=== PATIENT | female | born 1930 | race Caucasian/White ===

== ENCOUNTER 2016-09-06 22:16 | Inpatient (IN) | payer OTHER ==
[~2016-09-06] VITALS: Ht 162.6 cm; Wt 84.1 kg
[~2016-09-06 22:16] MED LIST: ASPEC81 PO; AVP150 PO; CHOL100010 PO; CPR500 PO; METR500T PO; NIFE30TA83 PO; ONDA4TAB7 SL; PRCSR30 PO; SIMV40TA2 PO
[2016-09-06] MEDS ORDERED: SODIUM CHLORIDE 0.9% 1000ML 1,000 ML IV STA (22:19)
--- NOTE | 2016-09-06 22:41 | DIAGNOSTIC IMAGING REPORT ---
HEAD CT NONCONTRAST CT DOSE: 1228.53 mGy.cm HISTORY: EVALUATE ALTERED MENTAL STATUS/WEAKNESS TECHNIQUE: Multiaxial CT images of the head were performed without the use of intravenous contrast. Automated exposure control was utilized for this study. Comparison: None. Findings: Mild motion artifact. The paranasal sinuses and mastoid air cells are clear. The calvarium and skull base are intact. There is no mass, hematoma, midline shift, acute infarct. White matter hypodensity is nonspecific but suggestive of microvascular ischemic change. The ventricles and sulci are within normal limits for age. 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 Right periorbital soft tissue swelling/hematoma. Impression: Mild motion artifact. No definite acute intracranial abnormality. Right periorbital soft tissue swelling/hematoma. Electronically signed by: Colton Mayer M.D. 09/06/2016 10:40 PM Dictated Date/Time: 09/06/2016 10:36 PM
[2016-09-06] MEDS ORDERED: ALBUT/IPRATROP 3MG/0.5MG NEB 3 ML VIAL INH STA (22:42)
--- NOTE | 2016-09-06 22:57 | DIAGNOSTIC IMAGING REPORT ---
CHEST ONE VIEW PORTABLE HISTORY: EVALUATE ALTERED MENTAL STATUS/WEAKNESS COMPARISON: Chest 07/12/2015. FINDINGS: No pneumothorax. No pleural effusions. No focal lung consolidations to suggest pneumonia. No evidence for pulmonary edema. Mild perihilar interstitial thickening. This may be chronic. The heart is normal in size. IMPRESSION: No acute process. Electronically signed by: Colton Mayer M.D. 09/06/2016 10:56 PM Dictated Date/Time: 09/06/2016 10:55 PM
[2016-09-06 22:59] LABS: BASO % 0.3 %; BASO ABS # 0.03 K/uL (0-0.2); COMPLETE YES; EOS % 2.2 %; HEMATOCRIT 44.2 % (37-47); IG% 0.5 %; LYMPH % 31.2 %; LYMPH ABS # 3.48 K/uL (1.2-3.4); MEAN CELL VOLUME 89.7 fL (80-100); MEAN CORPUSCULAR HEMOGLOBIN 30.2 pg (25-34); MEAN CORPUSCULAR HGB CONC 33.7 g/dl (32-36); MEAN PLATELET VOLUME 11.4 fL (7.4-10.4); NEUT % 54.8 %; PLATELET COUNT 211 K/uL (130-400); RED BLOOD COUNT 4.93 M/uL (4.2-5.4); WHITE BLOOD COUNT 11.14 K/uL (4.8-10.8)
[2016-09-06] MEDS ORDERED: ASPCH81X PO (23:02)
[2016-09-06] MEDS ORDERED: POLY335019 PO (23:04)
[2016-09-06] MEDS ORDERED: ATOR-22 PO (23:04)
[2016-09-06] MEDS ORDERED: DOCU-94 PO (23:04)
[2016-09-06] MEDS ORDERED: CALC600T9 PO (23:06)
[2016-09-06] MEDS ORDERED: IRBE-37 PO (23:08)
[2016-09-06] MEDS ORDERED: DONE5TAB14 PO (23:08)
[2016-09-06] MEDS ORDERED: METHYLPREDNISOLONE 125 MG VIAL IV STA (23:09)
[2016-09-06] MEDS ORDERED: ZNTT/150 PO (23:09)
[2016-09-06] MEDS ORDERED: NIFE30TA83 PO (23:09)
[2016-09-06] MEDS ORDERED: SERT25TA PO (23:09)
[2016-09-06 23:10] LABS: PROTHROMBIN TIME (PATIENT) 10.9 SECONDS (9.0-12.0)
[2016-09-06] MEDS ORDERED: ACET-1311 PO (23:11)
[2016-09-06 23:14] LABS: ISTAT IONIZED CALCIUM 1.18 mmol/l (1.12-1.32)
[2016-09-06] MEDS ORDERED: INSU100I2 SQ (23:15)
[2016-09-06 23:17] LABS: ALT/SGPT 21 U/L (12-78); BLOOD UREA NITROGEN 36 mg/dl (7-18); BUN/CREATININE RATIO 32.8 (10-20); CALCIUM 8.8 mg/dl (8.5-10.1); CARBON DIOXIDE 31 mmol/L (21-32); CHLORIDE 103 mmol/L (98-107); GLUCOSE 100 mg/dl (70-99); POTASSIUM 3.4 mmol/L (3.5-5.1); SODIUM 145 mmol/L (136-145)
[2016-09-06 23:26] LABS: ALKALINE PHOSPHATASE 84 U/L (45-117); AST/SGOT 18 U/L (15-37); CKMB/CK RATIO 2.4 (0-3.0); THYROID STIMULATING HORMONE 0.656 uIu/ml (0.300-4.500)
[2016-09-06 23:47] LABS: URINE APPEARANCE CLEAR (CLEAR); URINE BILIRUBIN NEG (NEG); URINE COLOR YELLOW; URINE NITRITE NEG (NEG); URINE SPECIFIC GRAVITY 1.014 (1.000-1.030); UROBILINOGEN NEG (NEG); ZZURINE CULT IF INDIC CATH NO
[2016-09-06 23:48] LABS: MANUAL MICROSCOPIC REQUIRED? NO; REVIEW REQ? NO
[2016-09-07] VITALS (9 sets, daily range): BP systolic 136–185; BP diastolic 47–80; PULSE 66–96; TEMP 36.6–37.1; O2SAT 91–97; Ht 162.6 cm; Wt 84.1 kg
--- NOTE | 2016-09-07 00:20 | EMERGENCY ROOM VISIT NOTE ---
History Report prepared by Chace: Kirill Espinoza Under the Supervision of: Dr. Stan Godinez D.O. First contact with patient: 22:18 Chief Complaint: ALTERED MENTAL STATUS Stated Complaint: FALL. STROKE SX History of Present Illness The patient is a 86 year old female who presents to the Emergency Room by EMS with complaints of an episode of altered mental status. Per EMS, she fell out of bed about 1 hour ago which is when she was last known to be well. She was not talking, not responding, and would stare off into space. She normally walks and talks. Her right arm had limited movement, and her left had more movement. She was able to move her legs bilaterally. She takes Aspirin. Per the patient's daughter, she is normally awake and alert. She note's the patient's mother had a history of stroke. She notes the patient is not normally unbalanced. She has diabetes and is managed only through her diet. Source of History: family, EMS Onset: about 1 hour [employer] Position: other (global) Quality: other (altered mental status) Timing: other (episode) Note: The patient is reported to have limited movement of her right arm. Review of Systems See HPI for pertinent positives & negatives. A total of 10 systems reviewed and were otherwise negative. Past Medical & Surgical Medical Problems: (1) Benign hypertension (2) Diabetes mellitus (3) Dyslipidemia Family History Stroke Social History Smoking Status: Former Smoker Alcohol Use: none Current/Historical Medications Scheduled Aspirin (Aspirin Chewable), 81 MG PO DAILY Atorvastatin (Lipitor), 20 MG PO DAILY Calcium Carbonate-Vitamin D (Calcium + D), 2 TABS PO DAILY Docusate Sodium (Colace), 100 MG PO HS Donepezil Hydrochloride (Aricept), 5 MG PO DAILY Insulin Lispro (Human) (Humalog Kwikpen), SQ ACHS Irbesartan (Avapro), 150 MG PO DAILY Nifedipine Ext Rel (Procardia Xl Ext Rel), 30 MG PO DAILY Polyethylene Glycol 3350 (Miralax), 17 GM PO DAILY Ranitidine (Zantac), 150 MG PO DAILY Sertraline (Zoloft), 25 MG PO DAILY Scheduled PRN Acetaminophen (Tylenol), 650 MG PO Q4 PRN for Mild Pain Acetaminophen (Tylenol), 650 MG PO Q4 PRN for Fever Allergies Coded Allergies: No Known Allergies (Unverified , 1/27/17) Physical Exam Vital Signs Date Time Temp Pulse Resp B/P Pulse Ox O2 Delivery O2 Flow Rate FiO2 09/07/16 00:03 79 26 169/73 95 Room Air 09/06/16 23:08 80 26 177/87 97 Nasal Cannula 3.0 09/06/16 23:00 86 30 175/78 99 Nebulizer 09/06/16 22:57 81 32 173/80 09/06/16 22:41 87 09/06/16 22:38 36.3 89 36 96/76 89 Room Air Physical Exam CONSTITUTIONAL/VITAL SIGNS: Reviewed / noted above. GENERAL: Non-toxic in appearance. INTEGUMENTARY: Warm, dry, and [place]. HEAD: Normocephalic. EYES: without scleral icterus. Ecchymosis and hematoma to the right lateral orbit and temporal area. ENT/OROPHARYNX: clear and moist. LYMPHADENOPATHY/NECK: Is supple without lymphadenopathy or meningismus. RESPIRATORY: Lungs clear and equal. CARDIOVASCULAR: Regular rate and rhythm. GI/ABDOMEN: Soft and nontender. No organomegaly or pulsatile mass. No rebound or guarding. Normal bowel sounds. EXTREMITIES: Warm and well perfused. BACK: No CVA tenderness. NEUROLOGICAL: Nonverbal; right arm paralysis; right leg weakness; right hemineglect. Does not follow commands, therefore exam is limited. PSYCHIATRIC: normal affect. MUSCULOSKELETAL: Normally developed with good muscle tone. Medical Decision & Procedures ER Provider Diagnostic Interpretation: X ray results and stated below per my interpretation and radiologist interpretation. Other radiology results and stated below per my review and radiologist interpretation: HEAD CT NONCONTRAST Findings: Mild motion artifact. The paranasal sinuses and mastoid air cells are clear. The calvarium and skull base are intact. There is no mass, hematoma, midline shift, acute infarct. White matter hypodensity is nonspecific but suggestive of microvascular ischemic change. The ventricles and sulci are within normal limits for age. 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 Right periorbital soft tissue swelling/hematoma. Impression: Mild motion artifact. No definite acute intracranial abnormality. Right periorbital soft tissue swelling/hematoma. Electronically signed by: Colton Mayer M.D. 09/06/2016 10:40 PM Dictated Date/Time: 09/06/2016 10:36 PM CHEST ONE VIEW PORTABLE FINDINGS: No pneumothorax. No pleural effusions. No focal lung consolidations to suggest pneumonia. No evidence for pulmonary edema. Mild perihilar interstitial thickening. This may be chronic. The heart is normal in size. IMPRESSION: No acute process. Electronically signed by: Colton Mayer M.D. 09/06/2016 10:56 PM Dictated Date/Time: 09/06/2016 10:55 PM Laboratory Results 09/06/16 22:00 Red Blood Count 4.93, Mean Corpuscular Volume 89.7, Mean Corpuscular Hemoglobin 30.2, Mean Corpuscular Hemoglobin Concent 33.7, Mean Platelet Volume 11.4, Neutrophils (%) (Auto) 54.8, Lymphocytes (%) (Auto) 31.2, Monocytes (%) (Auto) 11.0, Eosinophils (%) (Auto) 2.2, Basophils (%) (Auto) 0.3, Neutrophils # (Auto ) 6.10, Lymphocytes # (Auto) 3.48, Monocytes # (Auto) 1.23, Eosinophils # (Auto ) 0.24, Basophils # (Auto) 0.03 09/06/16 22:00 Test 09/06/16 22:00 09/06/16 22:58 09/06/16 23:20 09/06/16 23:51 White Blood Count 11.14 K/uL (4.8-10.8) Red Blood Count 4.93 M/uL (4.2-5.4) Hemoglobin 14.9 g/dL (12.0-16.0) Hematocrit 44.2 % (37-47) Mean Corpuscular Volume 89.7 fL (80-100) Mean Corpuscular Hemoglobin 30.2 pg (25-34) Mean Corpuscular Hemoglobin Concent 33.7 g/dl (32-36) Platelet Count 211 K/uL (130-400) Mean Platelet Volume 11.4 fL (7.4-10.4) Neutrophils (%) (Auto) 54.8 % Lymphocytes (%) (Auto) 31.2 % Monocytes (%) (Auto) 11.0 % Eosinophils (%) (Auto) 2.2 % Basophils (%) (Auto) 0.3 % Neutrophils # (Auto) 6.10 K/uL (1.4-6.5) Lymphocytes # (Auto) 3.48 K/uL (1.2-3.4) Monocytes # (Auto) 1.23 K/uL (0.11-0.59) Eosinophils # (Auto) 0.24 K/uL (0-0.5) Basophils # (Auto) 0.03 K/uL (0-0.2) RDW Standard Deviation 45.0 fL (36.4-46.3) RDW Coefficient of Variation 13.7 % (11.5-14.5) Immature Granulocyte % (Auto) 0.5 % Immature Granulocyte # (Auto) 0.06 K/uL (0.00-0.02) Prothrombin Time 10.9 SECONDS (9.0-12.0) Prothromb Time International Ratio 1.0 (0.9-1.1) Activated Partial Thromboplast Time 25.2 SECONDS (21.0-31.0) Partial Thromboplastin Ratio 1.0 Estimated GFR () 52.6 Estimated GFR (Non- 45.4 BUN/Creatinine Ratio 32.8 (10-20) Calcium Level 8.8 mg/dl (8.5-10.1) Magnesium Level 2.0 mg/dl (1.8-2.4) Total Bilirubin 0.5 mg/dl (0.2-1) Direct Bilirubin 0.1 mg/dl (0-0.2) Aspartate Amino Transf (AST/SGOT) 18 U/L (15-37) Alanine Aminotransferase (ALT/SGPT) 21 U/L (12-78) Alkaline Phosphatase 84 U/L (45-117) Total Creatine Kinase 74 U/L (26-192) Creatine Kinase MB 1.8 ng/ml (0.5-3.6) Creatine Kinase MB Ratio 2.4 (0-3.0) Troponin I 0.021 ng/ml (0-0.045) Total Protein 6.8 gm/dl (6.4-8.2) Albumin 3.2 gm/dl (3.4-5.0) Lipase 223 U/L (73-393) Thyroid Stimulating Hormone (TSH) 0.656 uIu/ml (0.300-4.500) Bedside Hemoglobin 15.0 g/dl (12.0-16.0) Bedside Hematocrit 44 % (37-47) Bedside Sodium 143 mEq/L (135-144) Bedside Potassium 3.3 mEq/L (3.3-5.0) Bedside Chloride 100 mEq/L (101-112) Bedside Total CO2 30 mEq/l (24-31) Anion Gap 18.0 mmol/L (16-25) Bedside Blood Urea Nitrogen 35 mg/dl (7-18) Bedside Creatinine 1.0 mg/dl (0.6-1.3) Bedside Glucose (other) 105 mg/dl (70-99) Bedside Ionized Calcium ([place]icia) 1.18 mmol/l (1.12-1.32) Urine Color YELLOW Urine Appearance CLEAR (CLEAR) Urine pH 5.0 (4.5-7.5) Urine Specific [place] 1.014 (1.000-1.030) Urine Protein NEG (NEG) Urine Glucose (UA) NEG (NEG) Urine Ketones NEG (NEG) Urine Occult Blood NEG (NEG) Urine Nitrite NEG (NEG) Urine Bilirubin NEG (NEG) Urine Urobilinogen NEG (NEG) Urine Leukocyte Esterase NEG (NEG) Urine WBC (Auto) 0 /hpf (0-5) Urine RBC (Auto) 0-4 /hpf (0-4) Urine Hyaline Casts (Auto) 1-5 /lpf (0-5) Urine Epithelial Cells (Auto) 10-20 /lpf (0-5) Urine Bacteria (Auto) NEG (NEG) Laboratory results as stated above per my review. Medications Administered Medications (Trade) Dose Ordered Sig/Zach Route Start Time Stop Time Status Last Admin Dose Admin Sodium Chloride (Nss 1000ml) 1,000 ml @ 150 mls/hr Q6H40M STAT IV 09/06/16 22:19 09/07/16 04:58 09/06/16 22:19 150 MLS/HR Albuterol/ Ipratropium (Duoneb) 3 ml NOW STAT INH 09/06/16 22:42 09/06/16 22:43 DC 09/06/16 22:46 3 ML Methylprednisolone Sodium Succinate (Solu-Medrol IV) 125 mg NOW STAT IV 09/06/16 23:09 09/06/16 23:11 DC 09/06/16 23:27 125 MG ECG Indication: altered mental status Rate (beats per minute): 82 Rhythm: sinus rhythm Findings: PAC, no acute ischemic change ED Course 9: Ordered NSS 1,000 ml @ 150 nls/hr IV. 2229: Previous medical records were reviewed. The patient was evaluated in room A1. A complete history and physical examination was performed. 2241: Ordered Duoneb 3 ml INH. 2308: Ordered Solu-Medrol IV 125 mg IV. Medical Decision Differential includes acute cardiac dysrhythmia, microinfarction, CVA, TIA, dehydration, anemia, electrolyte disturbance, seizure, trauma, intracranial bleeding, acute vascular catastrophe, thoracic aortic dissection, PE, abdominal aortic aneurysm rupture, infection, hypoglycemia, overdose, trauma. This is an 86-year-old female who presents to the ED with a chief complaint of a fall and altered mental status. The patient symptoms started around 9 or 9: 30. She apparently fell in the bathroom. She was felt to be a possible stroke victim as per EMS. They found the patient to have right sided weakness. The patient was non-verbal. She would not follow commands. She does have a history of Alzheimer's dementia. She is at a group home. The patient arrived by EMS. They initially took her over to CT scan. The CT scan did not show acute bleed. The patient's exam revealed some moderate to severe right arm paresis and right mild leg paresis. The patient is nonverbal and does not follow commands. She did moan to painful stimuli. Normal plantar reflexes. The patient appeared to have some difficulty breathing and a dry tongue swelling on exam. She has some expiratory wheezing. She was saturating 89% on room air. He is placed on nasal cannula oxygen and given a DuoNeb treatment. Her breathing improved after this. The patient has a large hematoma and ecchymosis on the right lateral orbit and temporal region. The patient has a chest x-ray that did not show acute disease. An EKG shows a sinus rhythm with frequent PACs. Blood work was unremarkable. I discussed the possibilities of thrombolytics with the patient's daughter. With the recent head trauma as well as the patient's age and baseline dementia, we did not feel the patient was a good candidate for thrombolytics. The patient's daughter did not want thrombolytics. The patient will be seen by the hospitalist service for further inpatient care. She was treated with IV fluids. Impression Primary Impression: CVA (cerebral vascular accident) Additional Impression: Traumatic hematoma of head Scribe Attestation The scribe's documentation has been prepared under my direction and personally reviewed by me in its entirety. I confirm that the note above accurately reflects all work, treatment, procedures, and medical decision making performed by me. Departure Information Dispostion Being Evaluated By Hospitalist Referrals MagoffinRamos (PCP) Patient Instructions My [facility] Health Problem Qualifiers
[2016-09-07 01:26] LABS: INFLUENZA A PCR Neg for Influ A (NEG); INFLUENZA B PCR Neg for Influ B (NEG)
[2016-09-07] MEDS ORDERED: VANCOMYCIN INJ 1,000 MG in SODIUM CHLORIDE 0.9% 250ML 250 ML IV STA (02:01)
[2016-09-07] MEDS ORDERED: MoRPHine SULFATE 2 MG/ML CARP IV PRN (02:15)
[2016-09-07] MEDS ORDERED: ONDANSETRON INJ 2 MG/ML 2 ML VIAL IV PRN ×2 (02:15)
[2016-09-07] MEDS ORDERED: PROMETHAZINE HCL INJ 12.5 MG in SODIUM CHLORIDE 0.9% 50ML 50 ML IV PRN (02:15)
[2016-09-07] MEDS ORDERED: DiphenhydrAMINE HCL 50 MG/ML VIAL IV PRN (02:15)
[2016-09-07] MEDS ORDERED: PATIENT'S HEIGHT AND/OR WEIGHT NEEDED SCH (03:00)
[2016-09-07] MEDS ORDERED: LEVALBUTEROL/IPRATROPIUM NEB INH SCH (03:00)
[2016-09-07] MEDS ORDERED: LEVALBUTEROL 1.25MG/0.5ML NEB INH PRN (03:15)
[2016-09-07] MEDS ORDERED: PIPERACILL/TAZOBAC CONSULT ACTIVE PRN (03:15)
[2016-09-07] MEDS ORDERED: IPRATROPIUM BROMIDE NEB SOLN 0.02% 2.5 ML VIAL INH PRN (03:15)
[2016-09-07] MEDS ORDERED: VANCOMYCIN CONSULT ACTIVE PRN (03:15)
[2016-09-07] MEDS ORDERED: PIPERACILL/TAZOBAC IV 3.375 GM in DEXTROSE 5% 100ML IV SCH (03:30)
[2016-09-07] MEDS ORDERED: VANCOMYCIN INJ 2,000 MG in SODIUM CHLORIDE 0.9% 500ML 500 ML IV SCH (04:00)
--- NOTE | 2016-09-07 04:05 | History and Physical ---
History & Physical Date & Time of Service: Sep 07, 2016 at 03:51 Chief Complaint: Hypoxia, Traumatic Hematoma Of Head Primary Care Physician: Travis Villalta History of Present Illness Source: patient, family, clinic records, hospital records The patient is an 86-year-old female resident of [place], he was brought to the emergency department after a fall in the bathroom with head injury, that occurred about one hour prior to arrival. Her daughter is in the emergency department during examination. She reports that her mother typically is interactive, does walk and talk, but does have significant baseline dementia. She was noted to have less right arm movement than usual, but was able to move her legs bilaterally. She takes aspirin daily. The daughter does report her mother had a history of stroke in the past but did not have any residual physical deficit. Past Medical/Surgical History Medical Problems: (1) Benign hypertension Status: Chronic (2) Diabetes mellitus Status: Chronic (3) Dyslipidemia Status: Chronic Family History Stroke Social History Smoking Status: Former Smoker Smokeless Tobacco Use: No Alcohol Use: none Drug Use: none [facility] Occupational Status: retired Immunizations History of Influenza Vaccine: Yes History of Tetanus Vaccine?: Yes History of Pneumococcal: Yes History of Hepatitis B Vaccine: Unknown Multi-Drug Resistant Organisms History of MDRO: No Allergies Coded Allergies: No Known Allergies (Unverified , 09/06/16) Home Medications Scheduled Aspirin (Aspirin Chewable), 81 MG PO DAILY Atorvastatin (Lipitor), 20 MG PO DAILY Calcium Carbonate-Vitamin D (Calcium + D), 2 TABS PO DAILY Docusate Sodium (Colace), 100 MG PO HS Donepezil Hydrochloride (Aricept), 5 MG PO DAILY Insulin Lispro (Human) (Humalog Kwikpen), SQ ACHS Irbesartan (Avapro), 150 MG PO DAILY Nifedipine Ext Rel (Procardia Xl Ext Rel), 30 MG PO DAILY Polyethylene Glycol 3350 (Miralax), 17 GM PO DAILY Ranitidine (Zantac), 150 MG PO DAILY Sertraline (Zoloft), 25 MG PO DAILY Scheduled PRN Acetaminophen (Tylenol), 650 MG PO Q4 PRN for Mild Pain Acetaminophen (Tylenol), 650 MG PO Q4 PRN for Fever Review of Systems The patient is unable to contribute to her review of systems due to altered mental state, and this baseline information is provided by her daughter as noted above. Physical Exam Vital Signs Date Time Temp Pulse Resp B/P Pulse Ox O2 Delivery O2 Flow Rate FiO2 09/07/16 03:07 36.9 96 32 185/47 91 Nasal Cannula 09/07/16 02:25 86 16 144/70 91 09/07/16 02:16 84 09/07/16 00:50 76 25 139/96 94 Nasal Cannula 3.0 09/07/16 00:03 79 26 169/73 95 Room Air 09/06/16 23:08 80 26 177/87 97 Nasal Cannula 3.0 09/06/16 23:00 86 30 175/78 99 Nebulizer 09/06/16 22:57 81 32 173/80 09/06/16 22:41 87 09/06/16 22:38 36.3 89 36 96/76 89 Room Air The patient is lethargic, occasionally opens eyes, does not interact purposefully, has a hematoma over right supraorbital frontal area, has an occasional harsh cough, and is otherwise in no acute distress. HEENT--PERRL, EOMI, mucous membranes and oropharynx dry. Hematoma as noted above. Neck--supple, no JVD or bruits, thyroid normal, trachea midline, no adenopathy. Heart--normal S1 and S2, no extra beats, no murmurs, rubs or gallops. Lungs--wheezes bilaterally, with scattered rhonchi, no respiratory distress, no accessory muscle use. Abdomen--normal bowel sounds and soft, nontender and nondistended, no hernias or masses, no organomegaly. Extremities--no cyanosis, clubbing or edema. There are good distal pulses b/l. Dermatologic--normal skin turgor, normal color, warm and dry, no abnormal lymph nodes, no rash. Neurologic--cranial nerves II through XII grossly intact. Rheumatologic--deferred Psychiatric--lethargic Diagnostics Laboratory Results Results Past 24 Hours Test 09/06/16 22:00 09/06/16 22:58 09/06/16 23:20 09/06/16 23:51 Range/Units White Blood Count 11.14 4.8-10.8 K/uL Red Blood Count 4.93 4.2-5.4 M/uL Hemoglobin 14.9 12.0-16.0 g/dL Hematocrit 44.2 37-47 % Mean Corpuscular Volume 89.7 80-100 fL Mean Corpuscular Hemoglobin 30.2 25-34 pg Mean Corpuscular Hemoglobin Concent 33.7 32-36 g/dl Platelet Count 211 130-400 K/uL Mean Platelet Volume 11.4 7.4-10.4 fL Neutrophils (%) (Auto) 54.8 % Lymphocytes (%) (Auto) 31.2 % Monocytes (%) (Auto) 11.0 % Eosinophils (%) (Auto) 2.2 % Basophils (%) (Auto) 0.3 % Neutrophils # (Auto) 6.10 1.4-6.5 K/uL Lymphocytes # (Auto) 3.48 1.2-3.4 K/uL Monocytes # (Auto) 1.23 0.11-0.59 K/uL Eosinophils # (Auto) 0.24 0-0.5 K/uL Basophils # (Auto) 0.03 0-0.2 K/uL RDW Standard Deviation 45.0 36.4-46.3 fL RDW Coefficient of Variation 13.7 11.5-14.5 % Immature Granulocyte % (Auto) 0.5 % Immature Granulocyte # (Auto) 0.06 0.00-0.02 K/uL Prothrombin Time 10.9 9.0-12.0 SECONDS Prothromb Time International Ratio 1.0 0.9-1.1 Activated Partial Thromboplast Time 25.2 21.0-31.0 SECONDS Partial Thromboplastin Ratio 1.0 Sodium Level 145 136-145 mmol/L Potassium Level 3.4 3.5-5.1 mmol/L Chloride Level 103 98-107 mmol/L Carbon Dioxide Level 31 21-32 mmol/L Anion Gap 11.0 18.0 16-25 mmol/L Blood Urea Nitrogen 36 7-18 mg/dl Creatinine 1.10 0.60-1.20 mg/dl Estimated GFR () 52.6 Estimated GFR (Non- 45.4 BUN/Creatinine Ratio 32.8 10-20 Random Glucose 100 70-99 mg/dl Calcium Level 8.8 8.5-10.1 mg/dl Magnesium Level 2.0 1.8-2.4 mg/dl Total Bilirubin 0.5 0.2-1 mg/dl Direct Bilirubin 0.1 0-0.2 mg/dl Aspartate Amino Transf (AST/SGOT) 18 15-37 U/L Alanine Aminotransferase (ALT/SGPT) 21 12-78 U/L Alkaline Phosphatase 84 45-117 U/L Total Creatine Kinase 74 26-192 U/L Creatine Kinase MB 1.8 0.5-3.6 ng/ml Creatine Kinase MB Ratio 2.4 0-3.0 Troponin I 0.021 0-0.045 ng/ml Total Protein 6.8 6.4-8.2 gm/dl Albumin 3.2 3.4-5.0 gm/dl Lipase 223 73-393 U/L Thyroid Stimulating Hormone (TSH) 0.656 0.300-4.500 uIu/ml Bedside Hemoglobin 15.0 12.0-16.0 g/dl Bedside Hematocrit 44 37-47 % Bedside Sodium 143 135-144 mEq/L Bedside Potassium 3.3 3.3-5.0 mEq/L Bedside Chloride 100 101-112 mEq/L Bedside Total CO2 30 24-31 mEq/l Bedside Blood Urea Nitrogen 35 7-18 mg/dl Bedside Creatinine 1.0 0.6-1.3 mg/dl Bedside Glucose (other) 105 70-99 mg/dl Bedside Ionized Calcium (Leticia) 1.18 1.12-1.32 mmol/l Urine Color YELLOW Urine Appearance CLEAR CLEAR Urine pH 5.0 4.5-7.5 Urine Specific [place] 1.014 1.000-1.030 Urine Protein NEG NEG Urine Glucose (UA) NEG NEG Urine Ketones NEG NEG Urine Occult Blood NEG NEG Urine Nitrite NEG NEG Urine Bilirubin NEG NEG Urine Urobilinogen NEG NEG Urine Leukocyte Esterase NEG NEG Urine WBC (Auto) 0 0-5 /hpf Urine RBC (Auto) 0-4 0-4 /hpf Urine Hyaline Casts (Auto) 1-5 0-5 /lpf Urine Epithelial Cells (Auto) 10-20 0-5 /lpf Urine Bacteria (Auto) NEG NEG Influenza Type A (RT-PCR) Neg for Influ A NEG Influenza Type B (RT-PCR) Neg for Influ B NEG Diagnostic Radiology Patient Name: SAULO PETERSON Unit Number: [id number] Dictated: 09/06/162235 Transcribed: 09/06/162235 [facility] Printed Date/Time: [~ rep prt dt]/[~ rep prt tm] [~ rep ct labl] - [~ rep ct ivnm] [place] [address] Dictated: 09/06/162235 Transcribed: 09/06/162235 [facility] Printed Date/Time: [~ rep prt dt]/[~ rep prt tm] [~ rep ct labl] - [~ rep ct ivnm] HEAD CT NONCONTRAST CT DOSE: 1228.53 mGy.cm HISTORY: EVALUATE ALTERED MENTAL STATUS/WEAKNESS TECHNIQUE: Multiaxial CT images of the head were performed without the use of intravenous contrast. Automated exposure control was utilized for this study. Comparison: None. Findings: Mild motion artifact. The paranasal sinuses and mastoid air cells are clear. The calvarium and skull base are intact. There is no mass, hematoma, midline shift, acute infarct. White matter hypodensity is nonspecific but suggestive of microvascular ischemic change. The ventricles and sulci are within normal limits for age. 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 Right periorbital soft tissue swelling/hematoma. Impression: Mild motion artifact. No definite acute intracranial abnormality. Right periorbital soft tissue swelling/hematoma. Electronically signed by: Colton Mayer M.D. 09/06/2016 10:40 PM Dictated Date/Time: 09/06/2016 10:36 PM The status of this report is Signed. Draft = Not yet reviewed or approved by Radiologist. Signed = Reviewed and approved by Radiologist. <AttendingPhy></AttendingPhy> <FamilyPhy>[facility]</FamilyPhy> <PrimaryPhy> [facility]</PrimaryPhy> <UnitNumber>[id number]</UnitNumber> <VisitNumber> [id number]</VisitNumber> <PatientName>SAULO PETERSON</PatientName> < DateOfBirth>1930</DateOfBirth> <Location>[facility]</Location> <ServiceDate></ServiceDate> <MNE>ESINDI</MNE> <OrderingPhy>Stan Godinez D.O.</ OrderingPhy> <OrderingPhyMNE>f rep ord dr pan</OrderingPhyMNE> <DictatingPhyMNE> f rep dict dr pan</DictatingPhyMNE> <CCListMNE>f rep ct mne</CCListMNE> < AdmittingPhyMNE>f pt admit dr pan</AdmittingPhyMNE> <AttendingPhyMNE>f pt attend dr pan</AttendingPhyMNE> <ConsultingPhyMNE>f pt consult dr pan</ConsultingPhyMNE> <FamilyPhyMNE>f pt fam dr pan</FamilyPhyMNE> <OtherPhyMNE>f pt other dr pan</OtherPhyMNE> < PrimaryPhyMNE>f pt prim care dr pan</PrimaryPhyMNE> <ReferringPhyMNE>f pt referring dr pan</ReferringPhyMNE> Patient Name: SAULO PETERSON Unit Number: [id number] Dictated: 09/06/162254 Transcribed: 09/06/162254 [employer] Printed Date/Time: [~ rep prt dt]/[~ rep prt tm] [~ rep ct labl] - [~ rep ct ivnm] Radiology Department [place], [place] [id number] Dictated: 09/06/162254 Transcribed: 09/06/162254 [employer] Printed Date/Time: [~ rep prt dt]/[~ rep prt tm] [~ rep ct labl] - [~ rep ct ivnm] HISTORY: EVALUATE ALTERED MENTAL STATUS/WEAKNESS COMPARISON: Chest 07/12/2015. FINDINGS: No pneumothorax. No pleural effusions. No focal lung consolidations to suggest pneumonia. No evidence for pulmonary edema. Mild perihilar interstitial thickening. This may be chronic. The heart is normal in size. IMPRESSION: No acute process. Electronically signed by: Colton Mayer M.D. 09/06/2016 10:56 PM Dictated Date/Time: 09/06/2016 10:55 PM The status of this report is Signed. Draft = Not yet reviewed or approved by Radiologist. Signed = Reviewed and approved by Radiologist. <AttendingPhy></AttendingPhy> <FamilyPhy>[facility]</FamilyPhy> <PrimaryPhy> [facility]</PrimaryPhy> <UnitNumber>[id number]</UnitNumber> <VisitNumber> [id number]</VisitNumber> <PatientName>SAULO PETERSON</PatientName> < DateOfBirth>1930</DateOfBirth> <Location>[facility]</Location> <ServiceDate></ServiceDate> <MNE>ESINDI</MNE> <OrderingPhy>Stan Godinez D.O.</ OrderingPhy> <OrderingPhyMNE>f rep ord dr pan</OrderingPhyMNE> <DictatingPhyMNE> f rep dict dr pan</DictatingPhyMNE> <CCListMNE>f rep ct viviane</CCListMNE> < AdmittingPhyMNE>f pt admit dr pan</AdmittingPhyMNE> <AttendingPhyMNE>f pt attend dr pan</AttendingPhyMNE> <ConsultingPhyMNE>f pt consult dr pan</ConsultingPhyMNE> <FamilyPhyMNE>f pt fam dr pan</FamilyPhyMNE> <OtherPhyMNE>f pt other dr pan</OtherPhyMNE> < PrimaryPhyMNE>f pt prim care dr pan</PrimaryPhyMNE> <ReferringPhyMNE>f pt referring dr pan</ReferringPhyMNE> EKG EKG shows sinus arrhythmia at 82, with no acute ST-T changes. Impression Assessment and Plan Altered mental status, with baseline significant dementia, status post fall with head trauma--the patient be admitted to the telemetry unit for cardiac rhythm monitoring. CT of the head does not show any acute issue at this time, and since she is beginning to arouse, will not be able to do repeat imaging tonight, as I do not want her sedated. She'll be admitted and made nothing by mouth, placed on normal saline with potassium chloride 20 mEq 100 ML's per hour. We'll follow serial laboratories. Pulmonary--possible aspiration pneumonia after fall versus pneumonia precipitating fall. Place on Solu-Medrol 40 mg IV every 8 hours, vancomycin IV per renal dosing, Zosyn 3.375 mg IV every 8 hours, and Xopenex with Atrovent nebulizers every 6 hours while awake and every 2 hours when necessary. Hypercholesterolemia-- hold atorvastatin 20 mg by mouth daily while nothing by mouth. Dementia-- hold donepezil 5 mg by mouth daily. Hypertension/hypokalemia-- hold chewable aspirin 81 mg by mouth daily, irbesartan 150 mg by mouth daily, nifedipine extended release 30 mg by mouth daily. Place on hydralazine 10 mg IV every 6 hours when necessary systolic blood pressure greater than 150. Diabetes mellitus--hold standard Humalog dosing, and place on Accu-Cheks before meals and at bedtime with NovoLog coverage. GERD--hold ranitidine 150 mg by mouth daily, and place on famotidine 20 mg IV twice a day. Depression--hold sertraline 25 mg by mouth daily. Level of Care Telemetry Advanced Directives Existing Advance Directive: Yes Existing Living Will: Yes Existing Power of Broadcast Correspondent: Yes Resuscitation Status DO NOT RESUSCITATE VTE Prophylaxis VTE Risk Assessment Done? Y/N: Yes Risk Level: Moderate Given or contraindicated: SCD's Social Service Consult [place]
[2016-09-07] MEDS ORDERED: INFLUENZA VIRUS QUAD VACCINE 0.5 ML SYR IM. ONE (04:30)
[2016-09-07] MEDS ORDERED: INFLUENZA ADMINISTRATION CHARGE ONE (04:30)
[2016-09-07] MEDS: LORAZEPAM 2 MG/ML 1 ML VIAL IV PRN (05:15)
[2016-09-07] MEDS: FAMOTIDINE IV INJ 20 MG in DEXTROSE 5% 100ML 100 ML IV SCH ×2 (05:44→16:30)
[2016-09-07] MEDS ORDERED: PIPERACILL/TAZOBAC IV 3.375 GM in DEXTROSE 5% 100ML 100 ML IV SCH (06:00)
[2016-09-07] MEDS: LEVALBUTEROL 1.25MG/0.5ML NEB INH SCH ×3 (07:06→19:33)
[2016-09-07] MEDS: IPRATROPIUM BROMIDE NEB SOLN 0.02% 2.5 ML VIAL INH SCH ×3 (07:06→19:33)
[2016-09-07] MEDS: NSS + 20MEQ KCL 1000ML 1,000 ML IV SCH ×2 (08:19→13:28)
[2016-09-07] MEDS: METHYLPREDNISOLONE IV 40 MG in SYRINGE 0 ML IV SCH ×2 (08:23→16:30)
[2016-09-07] MEDS: PIPERACILL/TAZOBAC IV 3.375 GM in DEXTROSE 5% 100ML IV SCH ×2 (08:23→16:30)
[2016-09-07] MEDS ORDERED: FAMOTIDINE 20MG/102 ML D5W IV SCH (09:00)
--- NOTE | 2016-09-07 09:16 | Neurology Consultation ---
Neurology Consultation Date of Consultation: Sep 07, 2016. Attending Physician: Rosendo Owusu D.O. Primary Care Physician: [place] Annette Reason for Consultation: Patient is an 86-year-old, was asked to see the request of Dr. Cronin, for neurologic consultation regarding severe right-sided weakness and aphasia, probable stroke History of Present Illness Source: caregiver, clinic records, hospital records The patient is obtunded and aphasic and gives no history. 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 She is on Aricept 5 mg a day. He last saw her in February 2015. In April 2014 she had her most recent MRI of the brain which showed a moderate old small vessel ischemic disease diffusely as well as other aging changes. She has a history of carotid stenosis and the most recent carotid ultrasound in April 2014 showed a 50-69 % stenosis in the left internal carotid artery with the right being unremarkable. She is on 81 mg aspirin tablet daily. She has a history of diabetes, hypertension, and dyslipidemia. She also has a history of obstructive sleep apnea. She is at [facility] and apparently fell one hour prior to admission striking her right forehead/orbit. She was found staring without speech or response and not moving her right upper extremity. She arrived at the emergency room on September 06 at 2-3 hours with a temperature 36.8, pulse 89 and regular, respiratory rate 36, blood pressure 96/76 and O2 saturation 89%. On exam she was nonverbal and was paralyzed in the right upper extremity. The right lower extremity was weak and she seemed to be neglecting the right side. NIH stroke scale was determined to be [address] scan of the head showed no acute changes. Chest x-ray was unremarkable as well. CBC and chem profile were largely unremarkable. Decision was made to not give TPA on the basis of her head trauma and dementia as well as the daughter refusing the medication After admission, around 0300 hours today, and age stroke scale by the nursing staff was 29. There has been no seizure activity noted by the nursing staff. Past Medical/Surgical History Medical Problems: (1) CVA (cerebral vascular accident) Status: Acute (2) Traumatic hematoma of head Status: Acute Hypertension Diabetes Dyslipidemia Chronic cerebral ischemia Obstructive sleep apnea Depression Post cataract surgery bilaterally, tonsillectomy, and dental surgery Family History Apparently there is a history of stroke and sleep apnea and the patient's mother. I'm no details regarding the patient's father. Social History The patient apparently quit cigarette smoking in the past but I have no further details. She does not use alcohol. She is described as being retired from his job which I have no further details Smoking Status: Former smoker Smokeless Tobacco Use: No Alcohol Use: none Drug Use: none Marital Status: single Housing Status: long-term Occupation Status: retired Allergies Coded Allergies: No Known Allergies (Unverified , 09/06/16) Current Inpatient Medications Current Inpatient Medications Medications (Trade) Dose Ordered Sig/Zach Route Start Time Stop Time Status Last Admin Dose Admin Potassium Chloride/Sodium Chloride 1,000 ml @ 100 mls/hr Q10H IV 09/07/16 03:00 10/07/16 02:59 09/07/16 08:19 100 MLS/HR Methylprednisolone Sodium Succinate/ Syringe (Solu-Medrol IV/ Syringe) 0.64 ml @ 1.5 mls/min Q8H IV 09/07/16 08:00 10/07/16 07:59 09/07/16 08:23 1.5 MLS/MIN Ondansetron HCl (Zofran Inj) 4 mg Q6H PRN IV 09/07/16 02:15 10/07/16 02:14 Lorazepam (Ativan Inj) 0.5 mg Q4H PRN IV 09/07/16 02:15 10/07/16 02:14 09/07/16 05:15 0.5 MG Diphenhydramine HCl 25 mg 25 mg Q4H PRN IV 09/07/16 02:15 10/07/16 02:14 Promethazine HCl/ Sodium Chloride (Phenergan Inj/ Nss 50ml) 50.5 ml @ 202 mls/hr Q4H PRN IV 09/07/16 02:15 10/07/16 02:14 Morphine Sulfate (MoRPHine SULFATE INJ) 2 mg Q2H PRN IV 09/07/16 02:15 09/21/16 02:14 Ipratropium [place] (Atrovent 0.02% 0.5MG/2.5ML Neb) 0.5 mg Q6R INH 09/07/16 09:00 10/07/16 08:59 09/07/16 07:06 0.5 MG Levalbuterol (Xopenex 1.25MG/ 0.5ML Neb) 1.25 mg Q6R INH 09/07/16 09:00 10/07/16 08:59 09/07/16 07:06 1.25 MG Ipratropium [place] (Atrovent 0.02% 0.5MG/2.5ML Neb) 0.5 mg Q2H PRN INH 09/07/16 03:15 10/07/16 03:14 Levalbuterol (Xopenex 1.25MG/ 0.5ML Neb) 1.25 mg Q2H PRN INH 09/07/16 03:15 10/07/16 03:14 Piperacillin Sod/ Tazobactam Sod (Consult) 1 ea UD PRN N/A 09/07/16 03:15 10/07/16 03:14 Vancomycin HCl 1 ea 1 ea UD PRN N/A 09/07/16 03:15 10/07/16 03:14 Piperacillin Sod/ Tazobactam Sod 3.375 gm/Dextrose 115 ml @ 28.75 mls/ hr Q8H IV 09/07/16 08:00 09/14/16 07:59 09/07/16 08:23 28.75 MLS/HR Famotidine/ Dextrose (Pepcid IV Inj/ D5 100ml) 102 ml @ 204 mls/hr Q12H IV 09/07/16 04:30 10/07/16 04:29 09/07/16 05:44 204 MLS/HR Review of Systems The patient cannot give a review of systems since she is nonverbal and will not follow commands Physical Exam Vital Signs (Past 24 Hrs): Date Time Temp Pulse Resp B/P Pulse Ox O2 Delivery O2 Flow Rate FiO2 09/07/16 07:06 73 16 94 Nasal Cannula 3.0 09/07/16 06:57 37.1 82 24 161/76 94 Nasal Cannula 2.5 Humidified Oxygen 09/07/16 05:50 155/62 09/07/16 04:00 Nasal Cannula 3.0 09/07/16 03:07 36.9 96 32 185/47 91 Nasal Cannula 09/07/16 02:25 86 16 144/70 91 09/07/16 02:16 84 09/07/16 00:50 76 25 139/96 94 Nasal Cannula 3.0 09/07/16 00:03 79 26 169/73 95 Room Air 09/06/16 23:08 80 26 177/87 97 Nasal Cannula 3.0 09/06/16 23:00 86 30 175/78 99 Nebulizer 09/06/16 22:57 81 32 173/80 09/06/16 22:41 87 09/06/16 22:38 36.3 89 36 96/76 89 Room Air Patient is right-handed. There is bruising and swelling around the right orbit and temporal head region. She is lying in bed with her eyes closed and head turn to the left. With clap or loud voice, she opens her eyes, lifts her head off the pillow, fixates on me for a second or 2, and then puts her head back and closes her eyes. I watched her over several minutes and she has a very deep/labored tachypnea which is consistent. She will not speak and she will not follow any simple one-step commands even when fixated on me. Pupils seem 3-4 mm bilaterally and reactive to light. I cannot get her to track past midline to the right. Does not see any specific facial droop and her tongue is midline. She gags. Neck is supple. There are no bruits. Heart without murmur. She will spontaneously move her left arm frequently picking and pulling at her clothing. She will wiggle her left toes spontaneously some, and to a very minor degree, her right toes. Her left arm is flaccid. She has decreased tone in both legs but there is good tone in the left arm. Reflexes are 1/4 in the biceps, triceps, brachioradialis, and quadriceps tendons bilaterally. Achilles tendon reflexes seem absent bilaterally. Toes are downgoing with plantar stimulation on the left and upgoing with plantar stimulation on the right. Patient grimaces, lifts her head up and opens her eyes, and makes groaning noises, and withdraws the limbs, with deep pain in 4 limbs. She reacts less quickly in the right leg than she does the left arm and leg which are quite rapidly withdrawn. She will draw a little bit with the right upper extremity to deep pain. Laboratory Results Past 24 Hours: 09/06/16 22:00 Red Blood Count 4.93, Mean Corpuscular Volume 89.7, Mean Corpuscular Hemoglobin 30.2, Mean Corpuscular Hemoglobin Concent 33.7, Mean Platelet Volume 11.4, Neutrophils (%) (Auto) 54.8, Lymphocytes (%) (Auto) 31.2, Monocytes (%) (Auto) 11.0, Eosinophils (%) (Auto) 2.2, Basophils (%) (Auto) 0.3, Neutrophils # (Auto ) 6.10, Lymphocytes # (Auto) 3.48, Monocytes # (Auto) 1.23, Eosinophils # (Auto ) 0.24, Basophils # (Auto) 0.03 09/06/16 22:00 Test 09/06/16 22:00 09/06/16 22:58 09/06/16 23:20 09/06/16 23:51 White Blood Count 11.14 K/uL (4.8-10.8) Red Blood Count 4.93 M/uL (4.2-5.4) Hemoglobin 14.9 g/dL (12.0-16.0) Hematocrit 44.2 % (37-47) Mean Corpuscular Volume 89.7 fL (80-100) Mean Corpuscular Hemoglobin 30.2 pg (25-34) Mean Corpuscular Hemoglobin Concent 33.7 g/dl (32-36) Platelet Count 211 K/uL (130-400) Mean Platelet Volume 11.4 fL (7.4-10.4) Neutrophils (%) (Auto) 54.8 % Lymphocytes (%) (Auto) 31.2 % Monocytes (%) (Auto) 11.0 % Eosinophils (%) (Auto) 2.2 % Basophils (%) (Auto) 0.3 % Neutrophils # (Auto) 6.10 K/uL (1.4-6.5) Lymphocytes # (Auto) 3.48 K/uL (1.2-3.4) Monocytes # (Auto) 1.23 K/uL (0.11-0.59) Eosinophils # (Auto) 0.24 K/uL (0-0.5) Basophils # (Auto) 0.03 K/uL (0-0.2) RDW Standard Deviation 45.0 fL (36.4-46.3) RDW Coefficient of Variation 13.7 % (11.5-14.5) Immature Granulocyte % (Auto) 0.5 % Immature Granulocyte # (Auto) 0.06 K/uL (0.00-0.02) Prothrombin Time 10.9 SECONDS (9.0-12.0) Prothromb Time International Ratio 1.0 (0.9-1.1) Activated Partial Thromboplast Time 25.2 SECONDS (21.0-31.0) Partial Thromboplastin Ratio 1.0 Estimated GFR () 52.6 Estimated GFR (Non- 45.4 BUN/Creatinine Ratio 32.8 (10-20) Calcium Level 8.8 mg/dl (8.5-10.1) Magnesium Level 2.0 mg/dl (1.8-2.4) Total Bilirubin 0.5 mg/dl (0.2-1) Direct Bilirubin 0.1 mg/dl (0-0.2) Aspartate Amino Transf (AST/SGOT) 18 U/L (15-37) Alanine Aminotransferase (ALT/SGPT) 21 U/L (12-78) Alkaline Phosphatase 84 U/L (45-117) Total Creatine Kinase 74 U/L (26-192) Creatine Kinase MB 1.8 ng/ml (0.5-3.6) Creatine Kinase MB Ratio 2.4 (0-3.0) Troponin I 0.021 ng/ml (0-0.045) Total Protein 6.8 gm/dl (6.4-8.2) Albumin 3.2 gm/dl (3.4-5.0) Lipase 223 U/L (73-393) Thyroid Stimulating Hormone (TSH) 0.656 uIu/ml (0.300-4.500) Bedside Hemoglobin 15.0 g/dl (12.0-16.0) Bedside Hematocrit 44 % (37-47) Bedside Sodium 143 mEq/L (135-144) Bedside Potassium 3.3 mEq/L (3.3-5.0) Bedside Chloride 100 mEq/L (101-112) Bedside Total CO2 30 mEq/l (24-31) Anion Gap 18.0 mmol/L (16-25) Bedside Blood Urea Nitrogen 35 mg/dl (7-18) Bedside Creatinine 1.0 mg/dl (0.6-1.3) Bedside Glucose (other) 105 mg/dl (70-99) Bedside Ionized Calcium ([place]) 1.18 mmol/l (1.12-1.32) Urine Color YELLOW Urine Appearance CLEAR (CLEAR) Urine pH 5.0 (4.5-7.5) Urine Specific [place] 1.014 (1.000-1.030) Urine Protein NEG (NEG) Urine Glucose (UA) NEG (NEG) Urine Ketones NEG (NEG) Urine Occult Blood NEG (NEG) Urine Nitrite NEG (NEG) Urine Bilirubin NEG (NEG) Urine Urobilinogen NEG (NEG) Urine Leukocyte Esterase NEG (NEG) Urine WBC (Auto) 0 /hpf (0-5) Urine RBC (Auto) 0-4 /hpf (0-4) Urine Hyaline Casts (Auto) 1-5 /lpf (0-5) Urine Epithelial Cells (Auto) 10-20 /lpf (0-5) Urine Bacteria (Auto) NEG (NEG) Influenza Type A (RT-PCR) Neg for Influ A (NEG) Influenza Type B (RT-PCR) Neg for Influ B (NEG) Imaging CHEST ONE VIEW PORTABLE HISTORY: EVALUATE ALTERED MENTAL STATUS/WEAKNESS COMPARISON: Chest 07/12/2015. FINDINGS: No pneumothorax. No pleural effusions. No focal lung consolidations to suggest pneumonia. No evidence for pulmonary edema. Mild perihilar interstitial thickening. This may be chronic. The heart is normal in size. IMPRESSION: No acute process. Electronically signed by: Colton Mayer M.D. 09/06/2016 10:56 PM Dictated Date/Time: 09/06/2016 10:55 PM Impression 1. Fall with closed head trauma bruising and contusion right orbital temporal region last evening. 2. Right arm plegia with right leg weakness, global aphasia, and probable right homonymous hemianopsia. There may be some neglect of the right side as well but this is more difficult to be certain. This is most likely consistent with a large left middle cerebral artery distribution CVA. There was no evidence of hemorrhage by CT scan. NIH stroke scale is 22 this morning The patient has a very poor prognosis, overall, given her advanced age and the extent and severity of the stroke. This event occurred on aspirin. 3. Multiple risk factors for stroke including hypertension, diabetes, dyslipidemia. Obstructive sleep apnea is a risk factor for stroke as well particularly of untreated. 4. Dementia. This is likely mixed aging and vascular. She is on donepezil 5 mg daily. 5. Depression on low-dose sertraline 25 mg daily. 6. History of left internal carotid artery stenosis, 50-69% stenosis Plan 1. MRI of the brain would be useful to obtain evaluate extent and severity of stroke. Would also help us with prognosis. 2. Consider carotid ultrasound and echocardiogram 3. Continue on aspirin for now but may consider switch to alternative medication such as Plavix I spoke with Dr. Owusu regarding his case including differential diagnosis and treatment options. Overall, I will reiterate that this is a very poor prognosis I spent a total of 60 minutes with this patient in direct patient care.
--- NOTE | 2016-09-07 15:24 | DIAGNOSTIC IMAGING REPORT ---
MRI OF THE BRAIN WITHOUT AND WITH IV CONTRAST CLINICAL HISTORY: Right-sided weakness. Possible stroke. COMPARISON STUDY: Head CT dated 09/06/2016, MRI the brain dated 05/02/2014. TECHNIQUE: MRI of the brain was performed from the vertex to the skull base utilizing various T1 and T2 weighted sequences. Following the IV administration of 8 mL of Gadavist contrast, additional enhanced images were obtained. FINDINGS: The study is compromised by patient motion artifact. Sagittal T1, axial diffusion, proton density and T2 weighted axial, coronal FLAIR, and pre and post axial T1-weighted images were acquired. These were supplemented with post gadolinium coronal T1 weighted images. No intra or extra-axial mass lesions are visualized. There are foci of restricted water diffusion involving the left posterior frontal, parietal lobe, insular cortex. The findings are indicative of acute/subacute infarct. There is no evidence of ventricular dilatation. Proton density T2-weighted and FLAIR images reveal scattered foci of increased T2 signal within the white matter, likely on a small vessel basis. There are bilateral basal ganglia lacunar infarcts. There are no abnormal flow voids. There is no evidence of pathologic enhancement. IMPRESSION: Moderate sized left MCA distribution acute/subacute infarct involving the left parietal lobe, posterior frontal lobe, and insular cortex. Electronically signed by: Mehdi King M.D. 09/07/2016 3:22 PM Dictated Date/Time: 09/07/2016 3:15 PM
--- NOTE | 2016-09-07 15:33 | DIAGNOSTIC IMAGING REPORT ---
ULTRASOUND OF THE CAROTID ARTERIES CLINICAL HISTORY: Stroke. Right-sided weakness COMPARISON STUDY: April 2014 TECHNIQUE: Real-time, grayscale, and color Doppler sonography of the carotid arteries was performed. Imaging reviewed in the transverse and longitudinal planes. NASCET criteria was utilized for stenosis calcification. FINDINGS: There is moderate atherosclerotic plaque present bilaterally. The peak systolic velocity within the right internal carotid artery is 84 cm/sec. The systolic velocity ratio of right internal to common carotid artery is 1.1. The peak systolic velocity within the left internal carotid artery is 138 cm/sec. The systolic velocity ratio left internal to common carotid artery is 2.1. Antegrade flow is seen in the vertebral arteries. The external carotid arteries are patent. IMPRESSION: 1. 50-69% stenosis of the left internal carotid artery. This remain similar to the preceding study. 2. No evidence of hemodynamically significant right internal carotid artery stenosis. Electronically signed by: Mehdi King M.D. 09/07/2016 3:32 PM Dictated Date/Time: 09/07/2016 3:29 PM
[2016-09-08] VITALS (10 sets, daily range): BP systolic 127–162; BP diastolic 54–84; PULSE 65–79; TEMP 36.3–36.8; O2SAT 91–97
[2016-09-08] MEDS: METHYLPREDNISOLONE IV 40 MG in SYRINGE 0 ML IV SCH ×3 (00:12→15:59)
[2016-09-08] MEDS: PIPERACILL/TAZOBAC IV 3.375 GM in DEXTROSE 5% 100ML IV SCH ×3 (00:12→15:59)
[2016-09-08] MEDS: IPRATROPIUM BROMIDE NEB SOLN 0.02% 2.5 ML VIAL INH SCH ×4 (02:06→19:04)
[2016-09-08] MEDS: LEVALBUTEROL 1.25MG/0.5ML NEB INH SCH ×4 (02:06→19:05)
[2016-09-08 04:13] LABS: BASO % 0.1 %; BASO ABS # 0.01 K/uL (0-0.2); COMPLETE YES; HEMATOCRIT 39.7 % (37-47); IG% 0.2 %; LYMPH % 7.1 %; LYMPH ABS # 1.22 K/uL (1.2-3.4); MEAN CELL VOLUME 89.8 fL (80-100); MEAN CORPUSCULAR HEMOGLOBIN 30.3 pg (25-34); MEAN CORPUSCULAR HGB CONC 33.8 g/dl (32-36); MEAN PLATELET VOLUME 11.5 fL (7.4-10.4); MONO % 5.7 %; NEUT % 86.9 %; PLATELET COUNT 193 K/uL (130-400); RED BLOOD COUNT 4.42 M/uL (4.2-5.4); WHITE BLOOD COUNT 17.12 K/uL (4.8-10.8)
[2016-09-08 04:35] LABS: BUN/CREATININE RATIO 21.2 (10-20); CALCIUM 8.1 mg/dl (8.5-10.1); CREATININE 1.2 mg/dl (0.60-1.20); MAGNESIUM 2.1 mg/dl (1.8-2.4); POTASSIUM 3.8 mmol/L (3.5-5.1)
[2016-09-08] MEDS: FAMOTIDINE IV INJ 20 MG in DEXTROSE 5% 100ML 100 ML IV SCH ×2 (04:49→15:59)
[2016-09-08] MEDS ORDERED: POTASSIUM CHLR 10MEQ / WTR IV STA (04:57)
[2016-09-08] MEDS ORDERED: NURSING VERBAL MED ORDER ONE (05:00)
[2016-09-08] MEDS: LORAZEPAM 2 MG/ML 1 ML VIAL IV PRN ×3 (05:46→22:11)
[2016-09-08] MEDS: NSS + 20MEQ KCL 1000ML 1,000 ML IV SCH ×3 (08:50→19:00)
--- NOTE | 2016-09-08 09:04 | Neurology Progress Notes ---
Neurology Progress Note Date of Service Sep 08, 2016. Subjective The patient has had no seizure activity or significant neurologic changes overnight, according to the nursing staff Patient still is not speaking but has movement. MRI of the brain showed moderate to large sized left middle cerebral artery distribution stroke involving posterior frontal, parietal and occipital lobe areas. There was moderate old small vessel ischemia diffusely as well. Carotid ultrasound showed a 50-69% stenosis of the left internal carotid artery , same as the previous study. The right had no significant stenosis. Monitoring revealed that the patient had a run of V. tach for a few seconds last night. Otherwise she is in a sinus rhythm with PACs. White count is elevated on CBC today. She is not anemic. Glucose is mildly elevated 133. 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 Additional history from the patient's daughter suggests that the patient fell and was found on the ground. There was a concern that she was sitting up when found with a large bruise on her right forehead. Objective Date Time Temp Pulse Resp B/P Pulse Ox O2 Delivery O2 Flow Rate FiO2 09/08/16 07:31 36.4 72 18 162/84 97 3.0 09/08/16 07:15 74 16 93 Nasal Cannula 3.0 09/08/16 04:10 36.3 71 18 154/69 92 09/08/16 04:00 Nasal Cannula 3.0 09/08/16 00:00 Nasal Cannula 3.0 09/07/16 23:50 36.9 69 20 157/80 97 Nasal Cannula 3.0 09/07/16 20:00 Nasal Cannula 3.0 09/07/16 19:33 74 16 94 Nasal Cannula 3.0 09/07/16 19:29 36.9 74 20 142/72 94 Nasal Cannula 3.0 09/07/16 16:23 36.8 66 20 162/78 96 09/07/16 16:00 Nasal Cannula 3.0 09/07/16 12:00 Nasal Cannula 3.0 09/07/16 11:00 36.6 78 18 136/61 95 Nasal Cannula 3.0 Humidified Oxygen Last 24 Hours Test 09/08/16 04:00 White Blood Count 17.12 K/uL Red Blood Count 4.42 M/uL Hemoglobin 13.4 g/dL Hematocrit 39.7 % Mean Corpuscular Volume 89.8 fL Mean Corpuscular Hemoglobin 30.3 pg Mean Corpuscular Hemoglobin Concent 33.8 g/dl Platelet Count 193 K/uL Mean Platelet Volume 11.5 fL Neutrophils (%) (Auto) 86.9 % Lymphocytes (%) (Auto) 7.1 % Monocytes (%) (Auto) 5.7 % Eosinophils (%) (Auto) 0.0 % Basophils (%) (Auto) 0.1 % Neutrophils # (Auto) 14.88 K/uL Lymphocytes # (Auto) 1.22 K/uL Monocytes # (Auto) 0.97 K/uL Eosinophils # (Auto) 0.00 K/uL Basophils # (Auto) 0.01 K/uL RDW Standard Deviation 44.3 fL RDW Coefficient of Variation 13.7 % Immature Granulocyte % (Auto) 0.2 % Immature Granulocyte # (Auto) 0.04 K/uL Sodium Level 147 mmol/L Potassium Level 3.8 mmol/L Chloride Level 111 mmol/L Carbon Dioxide Level 30 mmol/L Anion Gap 6.0 mmol/L Blood Urea Nitrogen 25 mg/dl Creatinine 1.20 mg/dl Est Creatinine Clear Calc Drug Dose 34.6 ml/min Estimated GFR () 47.4 Estimated GFR (Non- 40.9 BUN/Creatinine Ratio 21.2 Random Glucose 133 mg/dl Calcium Level 8.1 mg/dl Magnesium Level 2.1 mg/dl Imaging: MRI OF THE BRAIN WITHOUT AND WITH IV CONTRAST CLINICAL HISTORY: Right-sided weakness. Possible stroke. COMPARISON STUDY: Head CT dated 09/06/2016, MRI the brain dated 05/02/2014. TECHNIQUE: MRI of the brain was performed from the vertex to the skull base utilizing various T1 and T2 weighted sequences. Following the IV administration of 8 mL of Gadavist contrast, additional enhanced images were obtained. FINDINGS: The study is compromised by patient motion artifact. Sagittal T1, axial diffusion, proton density and T2 weighted axial, coronal FLAIR, and pre and post axial T1-weighted images were acquired. These were supplemented with post gadolinium coronal T1 weighted images. No intra or extra-axial mass lesions are visualized. There are foci of restricted water diffusion involving the left posterior frontal, parietal lobe, insular cortex. The findings are indicative of acute/subacute infarct. There is no evidence of ventricular dilatation. Proton density T2-weighted and FLAIR images reveal scattered foci of increased T2 signal within the white matter, likely on a small vessel basis. There are bilateral basal ganglia lacunar infarcts. There are no abnormal flow voids. There is no evidence of pathologic enhancement. IMPRESSION: Moderate sized left MCA distribution acute/subacute infarct involving the left parietal lobe, posterior frontal lobe, and insular cortex. Electronically signed by: Mehdi King M.D. 09/07/2016 3:22 PM Dictated Date/Time: 09/07/2016 3:15 PM ULTRASOUND OF THE CAROTID ARTERIES CLINICAL HISTORY: Stroke. Right-sided weakness COMPARISON STUDY: April 2014 TECHNIQUE: Real-time, grayscale, and color Doppler sonography of the carotid arteries was performed. Imaging reviewed in the transverse and longitudinal planes. NASCET criteria was utilized for stenosis calcification. FINDINGS: There is moderate atherosclerotic plaque present bilaterally. The peak systolic velocity within the right internal carotid artery is 84 cm/sec. The systolic velocity ratio of right internal to common carotid artery is 1.1. The peak systolic velocity within the left internal carotid artery is 138 cm/sec. The systolic velocity ratio left internal to common carotid artery is 2.1. Antegrade flow is seen in the vertebral arteries. The external carotid arteries are patent. IMPRESSION: 1. 50-69% stenosis of the left internal carotid artery. This remain similar to the preceding study. 2. No evidence of hemodynamically significant right internal carotid artery stenosis. Electronically signed by: Mehdi King M.D. 09/07/2016 3:32 PM Dictated Date/Time: 09/07/2016 3:29 PM Exam: She is lying in bed with her eyes closed with a tachypnea with steady deep breathing. She occasionally has a cough. With medium voice or gentle shaking she opens her eyes and will fix on the examiner to the left. Today, she will attempt to make noises when spoken to but she is speaking no words. She can move her head and eyes to the right past midline some today. She seemed to follow some simple one-step commands at times. There is a slight facial droop at the corner of the mouth on the right and tongue is midline. Extraocular eye muscles seem intact without nystagmus The patient has a plegic right upper extremity with some slight tone proximally. This is a slight improvement compared to yesterday. The right leg has good tone and she can hold it up on her own for 5 seconds. She will spontaneously move the left side and to a lesser degree the right leg. She will not spontaneously move the right upper extremity. Reflexes are trace to 1/4 throughout. Toes seem downgoing to plantar stimulation bilaterally. She withdraws quickly with reaction to deep pain in the left arm and leg. In the right leg she withdraws with a slight delay. With the right arm she will withdraw some with a delay. Current Inpatient Medications Medications (Trade) Dose Ordered Sig/Zach Route Start Time Stop Time Status Last Admin Dose Admin Potassium Chloride/Sodium Chloride 1,000 ml @ 100 mls/hr Q10H IV 09/07/16 03:00 10/07/16 02:59 09/07/16 13:28 100 MLS/HR Methylprednisolone Sodium Succinate/ Syringe (Solu-Medrol IV/ Syringe) 0.64 ml @ 1.5 mls/min Q8H IV 09/07/16 08:00 10/07/16 07:59 09/08/16 00:12 1.5 MLS/MIN Ondansetron HCl (Zofran Inj) 4 mg Q6H PRN IV 09/07/16 02:15 10/07/16 02:14 Lorazepam (Ativan Inj) 0.5 mg Q4H PRN IV 09/07/16 02:15 10/07/16 02:14 09/08/16 05:46 0.5 MG Diphenhydramine HCl 25 mg 25 mg Q4H PRN IV 09/07/16 02:15 10/07/16 02:14 Promethazine HCl/ Sodium Chloride (Phenergan Inj/ Nss 50ml) 50.5 ml @ 202 mls/hr Q4H PRN IV 09/07/16 02:15 10/07/16 02:14 Morphine Sulfate (MoRPHine SULFATE INJ) 2 mg Q2H PRN IV 09/07/16 02:15 09/21/16 02:14 Ipratropium [place] (Atrovent 0.02% 0.5MG/2.5ML Neb) 0.5 mg Q6R INH 09/07/16 09:00 10/07/16 08:59 09/08/16 07:15 0.5 MG Levalbuterol (Xopenex 1.25MG/ 0.5ML Neb) 1.25 mg Q6R INH 09/07/16 09:00 10/07/16 08:59 09/08/16 07:15 1.25 MG Ipratropium [place] (Atrovent 0.02% 0.5MG/2.5ML Neb) 0.5 mg Q2H PRN INH 09/07/16 03:15 10/07/16 03:14 Levalbuterol (Xopenex 1.25MG/ 0.5ML Neb) 1.25 mg Q2H PRN INH 09/07/16 03:15 10/07/16 03:14 Piperacillin Sod/ Tazobactam Sod 1 ea 1 ea UD PRN N/A 09/07/16 03:15 10/07/16 03:14 Piperacillin Sod/ Tazobactam Sod 3.375 gm/Dextrose 115 ml @ 28.75 mls/ hr Q8H IV 09/07/16 08:00 09/14/16 07:59 09/08/16 00:12 28.75 MLS/HR Famotidine/ Dextrose (Pepcid IV Inj/ D5 100ml) 102 ml @ 204 mls/hr Q12H IV 09/07/16 04:30 10/07/16 04:29 09/08/16 04:49 204 MLS/HR Impression 1. Fall with closed head trauma and bruising/contusion in the right orbital/ temporal region evening of September 06. 2. 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 Currently she has right arm plegia, global aphasia, and probable right homonymous hemianopsia. She seems improved today compared to yesterday and that that her right leg is stronger and she is attempting to make noises. She seemed to follow some one-step commands today. Her comprehension/receptive aphasia may not be as bad as I originally syndrome. NIH stroke scale is 17 this morning Despite her improvement from yesterday, the patient still has a very poor prognosis overall, given her advanced age and the extent and severity of the stroke. This event occurred on aspirin. 3. Multiple risk factors for stroke including hypertension, diabetes, dyslipidemia. Obstructive sleep apnea is a risk factor for stroke as well particularly of untreated. 4. Dementia. This is likely mixed aging and vascular. She is on donepezil 5 mg daily. Prior to this event she had memory issues but was fairly functional and mobile. 5. Depression on low-dose sertraline 25 mg daily. This was improved on medication. 6. Left internal carotid artery stenosis, 50-69% stenosis Ultrasound shows no change compared to previous. 7. Moderate old small vessel ischemic changes seen on MRI Plan 1. Continue on aspirin for now but may consider switch to alternative medication such as Plavix I spent 30 minutes discussing this case with the patient's daughter regarding differential diagnosis and treatment options, In addition to my direct patient care with the patient which was an additional 30 minutes.
--- NOTE | 2016-09-08 11:29 | Progress Note ---
Subjective Date of Service: Sep 08, 2016. Subjective Pt evaluation today including: conversation w/ family, physical exam, chart review, lab review, review of studies, conversation w/ storage management consultant, review of inpatient medication list Problem List Medical Problems: (1) CVA (cerebral vascular accident) Status: Acute (2) Traumatic hematoma of head Status: Acute Review of Systems Unable to obtain due to stroke Objective Vital Signs Date Time Temp Pulse Resp B/P Pulse Ox O2 Delivery O2 Flow Rate FiO2 09/08/16 08:00 97 Nasal Cannula 3.0 09/08/16 07:31 36.4 72 18 162/84 97 3.0 09/08/16 07:15 74 16 93 Nasal Cannula 3.0 09/08/16 04:10 36.3 71 18 154/69 92 09/08/16 04:00 Nasal Cannula 3.0 09/08/16 00:00 Nasal Cannula 3.0 09/07/16 23:50 36.9 69 20 157/80 97 Nasal Cannula 3.0 09/07/16 20:00 Nasal Cannula 3.0 09/07/16 19:33 74 16 94 Nasal Cannula 3.0 09/07/16 19:29 36.9 74 20 142/72 94 Nasal Cannula 3.0 09/07/16 16:23 36.8 66 20 162/78 96 09/07/16 16:00 Nasal Cannula 3.0 09/07/16 12:00 Nasal Cannula 3.0 Physical Exam General Appearance: WD/WN, + mild distress Neck: supple, no adenopathy Respiratory/Chest: lungs clear, + decreased breath sounds Cardiovascular: no edema, no gallop Abdomen: non tender, soft Neurologic/Psychiatric: alert, + motor weakness (right sided weakness), + disoriented Laboratory Results Last 24 Hours Test 09/08/16 04:00 09/08/16 11:09 White Blood Count 17.12 K/uL Red Blood Count 4.42 M/uL Hemoglobin 13.4 g/dL Hematocrit 39.7 % Mean Corpuscular Volume 89.8 fL Mean Corpuscular Hemoglobin 30.3 pg Mean Corpuscular Hemoglobin Concent 33.8 g/dl Platelet Count 193 K/uL Mean Platelet Volume 11.5 fL Neutrophils (%) (Auto) 86.9 % Lymphocytes (%) (Auto) 7.1 % Monocytes (%) (Auto) 5.7 % Eosinophils (%) (Auto) 0.0 % Basophils (%) (Auto) 0.1 % Neutrophils # (Auto) 14.88 K/uL Lymphocytes # (Auto) 1.22 K/uL Monocytes # (Auto) 0.97 K/uL Eosinophils # (Auto) 0.00 K/uL Basophils # (Auto) 0.01 K/uL RDW Standard Deviation 44.3 fL RDW Coefficient of Variation 13.7 % Immature Granulocyte % (Auto) 0.2 % Immature Granulocyte # (Auto) 0.04 K/uL Sodium Level 147 mmol/L Potassium Level 3.8 mmol/L Chloride Level 111 mmol/L Carbon Dioxide Level 30 mmol/L Anion Gap 6.0 mmol/L Blood Urea Nitrogen 25 mg/dl Creatinine 1.20 mg/dl Est Creatinine Clear Calc Drug Dose 34.6 ml/min Estimated GFR () 47.4 Estimated GFR (Non- 40.9 BUN/Creatinine Ratio 21.2 Random Glucose 133 mg/dl Calcium Level 8.1 mg/dl Magnesium Level 2.1 mg/dl Bedside Glucose 113 mg/dl Assessment and Plan Altered mental status, with baseline significant dementia, status post fall with head trauma and large left sided stroke MCA --the patient was admitted to the telemetry unit for cardiac rhythm monitoring. CT of the head does not show any acute issue. MRI confirmed left MCA stroke. Cartoid US stenosis left internal carotid artery but unchanged form previous study. ECHO pending. Pt present with significant right sided weakness but some improvement with right leg. Pt can not tolerate PO and nonverbal at this time. Poor prognosis. Appreciate neurology recs. Cont ASA but may switch to plavix. Pulmonary--possible aspiration pneumonia after fall versus pneumonia precipitating fall. Place on Solu-Medrol 40 mg IV every 8 hours, vancomycin IV per renal dosing, Zosyn 3.375 mg IV every 8 hours, and Xopenex with Atrovent nebulizers every 6 hours while awake and every 2 hours when necessary. Hypercholesterolemia-- hold atorvastatin 20 mg by mouth daily while nothing by mouth. Dementia-- hold donepezil 5 mg by mouth daily. Hypertension/hypokalemia-- hold chewable aspirin 81 mg by mouth daily, irbesartan 150 mg by mouth daily, nifedipine extended release 30 mg by mouth daily. Place on hydralazine 10 mg IV every 6 hours when necessary systolic blood pressure greater than 150. Diabetes mellitus--hold standard Humalog dosing, and place on Accu-Cheks before meals and at bedtime with NovoLog coverage. GERD--hold ranitidine 150 mg by mouth daily, and place on famotidine 20 mg IV twice a day. Depression--hold sertraline 25 mg by mouth daily.
--- NOTE | 2016-09-08 11:45 | ECHOCARDIOGRAM REPORT ---
*NOTICE TO RECEIVING [employer] This information is strictly Confidential and protected under [place] law. [place] law prohibits you from making any further disclosure of this information unless further disclosure is expressly permitted by the written consent of the person to whom it pertains or is authorized by law. A general authorization for the release of medical or other information is not sufficient for this purpose. Hospital accepts no responsibility if the information is made available to any other person, INCLUDING THE PATIENT. Interpretation Summary * Name: SAULO PETERSON Study Date: 09/08/2016 07:28 AM BP: 162/84 mmHg * Patient Location: .2T\S\S229\S\1 HR: 72 * : 1930 (M/d/yyy) Gender: Female Height: 64 in * Age: 86 yrs Ethnicity: [place] Weight: 178 lb * Ordering Physician: Rosendo Owusu * Referring Physician: Self, Referred * Performed By: Kelsi Iqbal RDCS * * Reason For Study: ALT OF CONSCIOUSNESS * BSA: 1.9 m2 * History: ALT OF CONSCIOUSNESS * -- Conclusions -- * 1. Normal left ventricular size with low normal systolic function. EF 50-55%. Inferolateral wall appears hypokinetic. Mild concentric left ventricular hypertrophy. * 2. There is mild mitral regurgitation. * 3. No visualized right to left interatrial shunt via color Doppler or following injection of agitated saline. * 4. Technically difficult study. * 5. Normal estimated right ventricular systolic pressure; RVSP 31 mmHg. * 6. No prior study available for comparison. Procedure Details * A complete two-dimensional transthoracic echocardiogram was performed (2D, M-mode, Doppler and color flow Doppler). * A saline contrast injection was performed to assess for cardiac shunting. * The injection was performed through an intravenous line in the left arm. * The attending nurse who injected the saline contrast was DAMIR HIRSCH. * A total of 10 cc of agitated saline was given. Left Ventricle * Normal left ventricular size with low normal systolic function. EF 50-55%. Inferolateral wall appears hypokinetic. Mild concentric left ventricular hypertrophy. * Ejection Fraction = 50-55%. Right Ventricle * The right ventricle is normal in size and function. * The right ventricular systolic function is normal as assessed by tricuspid annular plane systolic excursion (TAPSE) (normal >1.5 cm). Atria * The left atrial size is normal. * Right atrial size is normal. * No visualized right to left interatrial shunt via color Doppler or following injection of agitated saline. Mitral Valve * The mitral valve is grossly normal. * There is mild to moderate mitral annular calcification. * There is no mitral valve stenosis. * There is mild mitral regurgitation. Tricuspid Valve * The tricuspid valve is not well visualized, but is grossly normal. * There is no tricuspid stenosis. * There is mild tricuspid regurgitation. Aortic Valve * The aortic valve is trileaflet. * No hemodynamically significant valvular aortic stenosis. * No aortic regurgitation is present. Pulmonic Valve * The pulmonary valve is inadequately visualized, but the Doppler data is adequate for interpretation. * There is no pulmonic valvular stenosis. * Trace pulmonic valvular regurgitation. Great Vessels * The aortic root is normal size. Pericardium/Pleural * There is no pericardial effusion. Great Vessels * Normal inferior vena cava size and collapsability with sniff indicates a normal right atrial pressure of 3 mmHg MMode 2D Measurements and Calculations IVSd 1.2 cm IVSs 1.5 cm LVIDd 4.5 cm LVIDs 3.5 cm LVPWd 1.2 cm LVPWs 1.8 cm IVS/LVPW 1.0 FS 22.9 % EDV(Teich) 92.1 ml ESV(Teich) 49.6 ml EF(Teich) 46.1 % EDV(cubed) 90.7 ml ESV(cubed) 41.6 ml EF(cubed) 54.2 % % IVS thick 27.6 % % LVPW thick 53.3 % LV mass(C)d 191.9 grams LV mass(C)dI 103.1 grams/m\S\2 LV mass(C)s 223.3 grams LV mass(C)sI 120.0 grams/m\S\2 SV(Teich) 42.5 ml SI(Teich) 22.8 ml/m\S\2 SV(cubed) 49.1 ml SI(cubed) 26.4 ml/m\S\2 Ao root diam 3.0 cm Ao root area 7.3 cm\S\2 LA dimension 4.1 cm LA/Ao 1.3 LVAd ap4 23.3 cm\S\2 LVLd ap4 7.3 cm EDV(MOD-sp4) 62.7 ml EDV(sp4-el) 63.1 ml LVAs ap4 13.6 cm\S\2 LVLs ap4 6.0 cm ESV(MOD-sp4) 28.0 ml ESV(sp4-el) 25.9 ml EF(MOD-sp4) 55.3 % EF(sp4-el) 58.9 % LVAd ap2 22.6 cm\S\2 LVLd ap2 7.4 cm EDV(MOD-sp2) 60.8 ml EDV(sp2-el) 58.5 ml LVAs ap2 14.3 cm\S\2 LVLs ap2 6.2 cm ESV(MOD-sp2) 30.9 ml ESV(sp2-el) 28.3 ml EF(MOD-sp2) 49.1 % EF(sp2-el) 51.7 % LVLd %diff 0.24 % EDV(MOD-bp) 63.9 ml LVLs %diff 5.8 % ESV(MOD-bp) 29.9 ml EF(MOD-bp) 53.3 % SV(MOD-sp4) 34.7 ml SI(MOD-sp4) 18.6 ml/m\S\2 SV(MOD-sp2) 29.8 ml SI(MOD-sp2) 16.0 ml/m\S\2 SV(MOD-bp) 34.1 ml SI(MOD-bp) 18.3 ml/m\S\2 SV(sp4-el) 37.2 ml SI(sp4-el) 20.0 ml/m\S\2 SV(sp2-el) 30.3 ml SI(sp2-el) 16.3 ml/m\S\2 Doppler Measurements and Calculations MV E max adelina 115.9 cm/sec MV A max adelina 51.9 cm/sec MV E/A 2.2 MV dec time 0.21 sec Ao V2 max 124.1 cm/sec Ao max PG 6.2 mmHg Ao max PG (full) 4.7 mmHg LV V1 max PG 1.5 mmHg LV V1 max 61.1 cm/sec TR max adelina 262.7 cm/sec RVSP(TR) 30.6 mmHg RAP systole 3.0 mmHg
[2016-09-08 18:50] LABS: BUN/CREATININE RATIO 26.3 (10-20); CALCIUM 7.9 mg/dl (8.5-10.1); CREATININE 1.1 mg/dl (0.60-1.20); POTASSIUM 4.1 mmol/L (3.5-5.1)
[2016-09-09] VITALS (8 sets, daily range): BP systolic 163–174; BP diastolic 69–85; PULSE 63–114; TEMP 36.4–36.6; O2SAT 90–98
[2016-09-09] MEDS: PIPERACILL/TAZOBAC IV 3.375 GM in DEXTROSE 5% 100ML IV SCH ×3 (00:25→17:35)
[2016-09-09] MEDS: METHYLPREDNISOLONE IV 40 MG in SYRINGE 0 ML IV SCH ×3 (00:27→16:49)
[2016-09-09] MEDS: LEVALBUTEROL 1.25MG/0.5ML NEB INH SCH ×2 (01:49→06:17)
[2016-09-09] MEDS: IPRATROPIUM BROMIDE NEB SOLN 0.02% 2.5 ML VIAL INH SCH ×2 (01:49→06:17)
[2016-09-09] MEDS: FAMOTIDINE IV INJ 20 MG in DEXTROSE 5% 100ML 100 ML IV SCH ×2 (04:48→17:36)
[2016-09-09] MEDS: NSS + 20MEQ KCL 1000ML 1,000 ML IV SCH (05:00)
[2016-09-09 05:24] LABS: HEMATOCRIT 42.4 % (37-47); MEAN CELL VOLUME 92.6 fL (80-100); MEAN CORPUSCULAR HEMOGLOBIN 30.6 pg (25-34); MEAN PLATELET VOLUME 11.7 fL (7.4-10.4); PLATELET COUNT 193 K/uL (130-400); RED BLOOD COUNT 4.58 M/uL (4.2-5.4); WHITE BLOOD COUNT 22.94 K/uL (4.8-10.8)
[2016-09-09 05:57] LABS: BASO ABS # 0.01 K/uL (0-0.2); COMPLETE YES; IG% 0.3 %; LYMPH % 2.1 %; LYMPH ABS # 0.48 K/uL (1.2-3.4); MONO % 2.5 %; NEUT % 95.1 %
[2016-09-09 06:00] LABS: BUN/CREATININE RATIO 26.7 (10-20); CALCIUM 8.2 mg/dl (8.5-10.1); MAGNESIUM 2.1 mg/dl (1.8-2.4); POTASSIUM 4.3 mmol/L (3.5-5.1)
--- NOTE | 2016-09-09 09:01 | Hospitalist Progress Note ---
Hospitalist Progress Note Date of Service Sep 09, 2016. Subjective Pt evaluation today including: conversation w/ patient, physical exam, chart review, lab review, review of studies, review of inpatient medication list Patient is nonverbal. Will open eyes in response to name. Follows command to squeeze hands. No acute distress. ROS cannot be obtained due to patient's mental status. Medications Current Inpatient Medications Medications (Trade) Dose Ordered Sig/Zach Route Start Time Stop Time Status Last Admin Dose Admin Methylprednisolone Sodium Succinate/ Syringe (Solu-Medrol IV/ Syringe) 0.64 ml @ 1.5 mls/min Q8H IV 09/07/16 08:00 10/07/16 07:59 09/09/16 08:18 1.5 MLS/MIN Ondansetron HCl (Zofran Inj) 4 mg Q6H PRN IV 09/07/16 02:15 10/07/16 02:14 Lorazepam (Ativan Inj) 0.5 mg Q4H PRN IV 09/07/16 02:15 10/07/16 02:14 09/08/16 22:11 0.5 MG Diphenhydramine HCl 25 mg 25 mg Q4H PRN IV 09/07/16 02:15 10/07/16 02:14 Promethazine HCl/ Sodium Chloride (Phenergan Inj/ Nss 50ml) 50.5 ml @ 202 mls/hr Q4H PRN IV 09/07/16 02:15 10/07/16 02:14 Morphine Sulfate (MoRPHine SULFATE INJ) 2 mg Q2H PRN IV 09/07/16 02:15 09/21/16 02:14 09/08/16 12:43 2 MG Ipratropium [place] (Atrovent 0.02% 0.5MG/2.5ML Neb) 0.5 mg Q6R INH 09/07/16 09:00 10/07/16 08:59 09/09/16 06:17 0.5 MG Levalbuterol (Xopenex 1.25MG/ 0.5ML Neb) 1.25 mg Q6R INH 09/07/16 09:00 10/07/16 08:59 09/09/16 06:17 1.25 MG Ipratropium [place] (Atrovent 0.02% 0.5MG/2.5ML Neb) 0.5 mg Q2H PRN INH 09/07/16 03:15 10/07/16 03:14 Levalbuterol (Xopenex 1.25MG/ 0.5ML Neb) 1.25 mg Q2H PRN INH 09/07/16 03:15 10/07/16 03:14 Piperacillin Sod/ Tazobactam Sod 1 ea 1 ea UD PRN N/A 09/07/16 03:15 10/07/16 03:14 Piperacillin Sod/ Tazobactam Sod 3.375 gm/Dextrose 115 ml @ 28.75 mls/ hr Q8H IV 09/07/16 08:00 09/14/16 07:59 09/09/16 08:18 28.75 MLS/HR Famotidine 20 mg/ Dextrose 102 ml @ 204 mls/hr Q12H IV 09/07/16 04:30 10/07/16 04:29 09/09/16 04:48 204 MLS/HR Sodium Chloride/ Sterile Water (Sodium Chloride 14.6%/Sterile Water 1000 ml) 1,000 ml @ 60 mls/hr [id number] IV 09/09/16 08:30 10/09/16 08:29 UNV Aspirin (Aspirin Supp) 300 mg DAILY AL 09/10/16 09:00 10/10/16 08:59 Objective Vital Signs Date Time Temp Pulse Resp B/P Pulse Ox O2 Delivery O2 Flow Rate FiO2 09/09/16 07:20 36.4 74 20 165/82 96 4.0 09/09/16 06:17 86 20 94 Nasal Cannula 4.0 09/09/16 04:02 36.5 74 28 167/82 94 Nasal Cannula 09/09/16 04:00 Nasal Cannula 3.0 09/09/16 00:08 36.5 63 28 163/69 98 Nasal Cannula 09/08/16 23:59 Nasal Cannula 3.0 09/08/16 20:00 Nasal Cannula 3.0 09/08/16 19:05 79 16 97 Nasal Cannula 3.5 09/08/16 16:00 96 Nasal Cannula 3.0 09/08/16 15:34 36.6 65 16 127/54 94 Nasal Cannula 3.0 Humidified Oxygen 09/08/16 13:46 74 16 91 Nasal Cannula 3.0 09/08/16 12:00 96 Nasal Cannula 3.0 09/08/16 11:26 36.8 70 16 154/82 96 3.0 Physical Exam General Appearance: no apparent distress, + obese Eyes: PERRL, + pertinent finding (bruising around right eye orbit ) Neck: supple Respiratory/Chest: no respiratory distress, no accessory muscle use, + pertinent finding (coarse breath sounds throughtout ) Cardiovascular: regular rate, rhythm Abdomen: normal bowel sounds, soft Extremities: no pedal edema Neurologic/Psychiatric: + disoriented, + pertinent finding (Opens eyes to name. Decreased right hand pit slagman) Skin: normal color, warm/dry, no rash Laboratory Results Last 24 Hours Test 09/08/16 11:09 09/08/16 18:26 09/09/16 05:03 09/09/16 08:29 Bedside Glucose 113 mg/dl Sodium Level 145 mmol/L 148 mmol/L Potassium Level 4.1 mmol/L 4.3 mmol/L Chloride Level 112 mmol/L 111 mmol/L Carbon Dioxide Level 24 mmol/L 28 mmol/L Anion Gap 9.0 mmol/L 9.0 mmol/L Blood Urea Nitrogen 29 mg/dl 27 mg/dl Creatinine 1.10 mg/dl 1.00 mg/dl Est Creatinine Clear Calc Drug Dose 38.1 ml/min 41.9 ml/min Estimated GFR () 52.6 59.1 Estimated GFR (Non- 45.4 51.0 BUN/Creatinine Ratio 26.3 26.7 Random Glucose 160 mg/dl 135 mg/dl Calcium Level 7.9 mg/dl 8.2 mg/dl Magnesium Level 2.0 mg/dl 2.1 mg/dl White Blood Count 22.94 K/uL Red Blood Count 4.58 M/uL Hemoglobin 14.0 g/dL Hematocrit 42.4 % Mean Corpuscular Volume 92.6 fL Mean Corpuscular Hemoglobin 30.6 pg Mean Corpuscular Hemoglobin Concent 33.0 g/dl Platelet Count 193 K/uL Mean Platelet Volume 11.7 fL Neutrophils (%) (Auto) 95.1 % Lymphocytes (%) (Auto) 2.1 % Monocytes (%) (Auto) 2.5 % Eosinophils (%) (Auto) 0.0 % Basophils (%) (Auto) 0.0 % Neutrophils # (Auto) 21.80 K/uL Lymphocytes # (Auto) 0.48 K/uL Monocytes # (Auto) 0.57 K/uL Eosinophils # (Auto) 0.00 K/uL Basophils # (Auto) 0.01 K/uL RDW Standard Deviation 47.1 fL RDW Coefficient of Variation 14.3 % Immature Granulocyte % (Auto) 0.3 % Immature Granulocyte # (Auto) 0.08 K/uL Assessment and Plan Altered mental status, with baseline significant dementia, status post fall with head trauma and large left sided stroke MCA : - Admit to the telemetry unit for cardiac rhythm monitoring - Hydrate with IV NSS -- 08/14 NSS @ 60 ml/hr due to hypernatremia of 148. Continue to follow PRP. () - Influenza negative - U/A negative - CT of the head does not show any acute issue. MRI confirmed left MCA stroke - Carotid U/S stenosis left internal carotid artery but unchanged form previous study - ECHO- Normal left ventricular size with low normal systolic function. EF 50-55 %. Inferolateral wall appears hypokinetic. Mild concentric left ventricular hypertrophy. There is mild mitral regurgitation. No visualized right to left interatrial shunt via color Doppler or following injection of agitated saline. Normal estimated right ventricular systolic pressure; RVSP 31 mmHg. - Appreciate neurology recommendations -- Cont ASA rectally but may switch to Plavix when tolerating oral intake -- Check ha1c and lipid panel - Speech therapy following- NPO since 09/07. Likely will need video swallowing prior to starting diet - Follow CBC -- Leukocytosis, likely secondary to IV Solu Medrol. (09/09) Pulmonary--possible aspiration pneumonia after fall versus pneumonia precipitating fall: - Solu-Medrol 40 mg IV every 8 hours, Vancomycin IV per renal dosing, Zosyn 3.375 mg IV every 8 hours (started 09/07) -- MRSA swab negative, d/c'd IV Vancomycin - Xopenex with Atrovent nebulizers every 6 hours while awake and every 2 hours when necessary. Hypercholesterolemia: - Hold Atorvastatin 20 mg by mouth daily while nothing by mouth Dementia: - Hold Donepezil 5 mg by mouth daily while NPO Hypertension/hypokalemia: - Hold chewable aspirin 81 mg by mouth daily, Irbesartan 150 mg by mouth daily, Nifedipine extended release 30 mg by mouth daily while NPO - Hydralazine 10 mg IV every 6 hours when necessary systolic blood pressure greater than 150 Diabetes mellitus: - Hold standard Humalog dosing - BSG ACHS with NovoLog coverage GERD: - Hold Ranitidine 150 mg by mouth daily and place on Famotidine 20 mg IV twice a day. Depression: - Hold Sertraline 25 mg by mouth daily while NPO Code Status: - LEVEL V, DNR Dispo: - Resident of [facility]. - Poor prognosis. Consult palliative care
[2016-09-09 09:06] LABS: ESTIMATED AVERAGE GLUCOSE 146 mg/dl; HA1C FLAG Normal (Normal)
--- NOTE | 2016-09-09 10:15 | Neurology Progress Notes ---
Neurology Progress Note Date of Service Sep 09, 2016. Subjective No known neurological changes in the last 24 hours. Patient unable to give subjective history secondary to mental status and aphasia Objective Date Time Temp Pulse Resp B/P Pulse Ox O2 Delivery O2 Flow Rate FiO2 09/09/16 08:00 Nasal Cannula 3.0 09/09/16 07:20 36.4 74 20 165/82 96 4.0 09/09/16 06:17 86 20 94 Nasal Cannula 4.0 09/09/16 04:02 36.5 74 28 167/82 94 Nasal Cannula 09/09/16 04:00 Nasal Cannula 3.0 09/09/16 00:08 36.5 63 28 163/69 98 Nasal Cannula 09/08/16 23:59 Nasal Cannula 3.0 09/08/16 20:00 Nasal Cannula 3.0 09/08/16 19:05 79 16 97 Nasal Cannula 3.5 09/08/16 16:00 96 Nasal Cannula 3.0 09/08/16 15:34 36.6 65 16 127/54 94 Nasal Cannula 3.0 Humidified Oxygen 09/08/16 13:46 74 16 91 Nasal Cannula 3.0 09/08/16 12:00 96 Nasal Cannula 3.0 09/08/16 11:26 36.8 70 16 154/82 96 3.0 Last 24 Hours Test 09/08/16 11:09 09/08/16 18:26 09/09/16 05:03 Bedside Glucose 113 mg/dl Sodium Level 145 mmol/L 148 mmol/L Potassium Level 4.1 mmol/L 4.3 mmol/L Chloride Level 112 mmol/L 111 mmol/L Carbon Dioxide Level 24 mmol/L 28 mmol/L Anion Gap 9.0 mmol/L 9.0 mmol/L Blood Urea Nitrogen 29 mg/dl 27 mg/dl Creatinine 1.10 mg/dl 1.00 mg/dl Est Creatinine Clear Calc Drug Dose 38.1 ml/min 41.9 ml/min Estimated GFR () 52.6 59.1 Estimated GFR (Non- 45.4 51.0 BUN/Creatinine Ratio 26.3 26.7 Random Glucose 160 mg/dl 135 mg/dl Calcium Level 7.9 mg/dl 8.2 mg/dl Magnesium Level 2.0 mg/dl 2.1 mg/dl White Blood Count 22.94 K/uL Red Blood Count 4.58 M/uL Hemoglobin 14.0 g/dL Hematocrit 42.4 % Mean Corpuscular Volume 92.6 fL Mean Corpuscular Hemoglobin 30.6 pg Mean Corpuscular Hemoglobin Concent 33.0 g/dl Platelet Count 193 K/uL Mean Platelet Volume 11.7 fL Neutrophils (%) (Auto) 95.1 % Lymphocytes (%) (Auto) 2.1 % Monocytes (%) (Auto) 2.5 % Eosinophils (%) (Auto) 0.0 % Basophils (%) (Auto) 0.0 % Neutrophils # (Auto) 21.80 K/uL Lymphocytes # (Auto) 0.48 K/uL Monocytes # (Auto) 0.57 K/uL Eosinophils # (Auto) 0.00 K/uL Basophils # (Auto) 0.01 K/uL RDW Standard Deviation 47.1 fL RDW Coefficient of Variation 14.3 % Immature Granulocyte % (Auto) 0.3 % Immature Granulocyte # (Auto) 0.08 K/uL Estimated Average Glucose 146 mg/dl Hemoglobin A1c 6.7 % Imaging: MRI of the brain reported images reviewed by myself. Patient has an acute to subacute left MCA territory ischemic stroke. Ultrasound of carotids significant for a left ICA stenosis of 50% Echo unremarkable for cardio embolic sources for stroke. Lipids and hemoglobin A1c have not been done Exam: Gen.: Patient is alert. Some respiratory wheezing HEENT: Normocephalis, bruising around the right eye, no scleral icterus Heart: Regular rate and rhythm Extremities: No gross deformities or rashes noted Neurological examination: Mental status: Patient is alert. Global mixed aphasia probably expressive more than receptive. Follows a few commands correctly but most commands unable to follow. Speech: Make sounds but no words. Cranial nerve: Could not get patient to do formal extraocular muscle testing. Did not seem to blink to confrontation on the right. Cannot get the patient to participate in formal facial strength examination. Tongue appeared midline. Strength: Left upper and lower extremity likely normal strength, although did not participate in formal strength examination. Right upper extremity antigravity, but clearly weaker than the left. I could not get the patient to lift up her right lower extremity. Sensation: Difficult to assess secondary to mental status Coordination difficult to assess due to mental status. Station within the bed was normal Current Inpatient Medications Medications (Trade) Dose Ordered Sig/Zach Route Start Time Stop Time Status Last Admin Dose Admin Methylprednisolone Sodium Succinate/ Syringe (Solu-Medrol IV/ Syringe) 0.64 ml @ 1.5 mls/min Q8H IV 09/07/16 08:00 10/07/16 07:59 09/09/16 08:18 1.5 MLS/MIN Ondansetron HCl (Zofran Inj) 4 mg Q6H PRN IV 09/07/16 02:15 10/07/16 02:14 Lorazepam (Ativan Inj) 0.5 mg Q4H PRN IV 09/07/16 02:15 10/07/16 02:14 09/08/16 22:11 0.5 MG Diphenhydramine HCl 25 mg 25 mg Q4H PRN IV 09/07/16 02:15 10/07/16 02:14 Promethazine HCl/ Sodium Chloride (Phenergan Inj/ Nss 50ml) 50.5 ml @ 202 mls/hr Q4H PRN IV 09/07/16 02:15 10/07/16 02:14 Morphine Sulfate (MoRPHine SULFATE INJ) 2 mg Q2H PRN IV 09/07/16 02:15 09/21/16 02:14 09/08/16 12:43 2 MG Ipratropium [place] (Atrovent 0.02% 0.5MG/2.5ML Neb) 0.5 mg Q6R INH 09/07/16 09:00 10/07/16 08:59 09/09/16 06:17 0.5 MG Levalbuterol (Xopenex 1.25MG/ 0.5ML Neb) 1.25 mg Q6R INH 09/07/16 09:00 10/07/16 08:59 09/09/16 06:17 1.25 MG Ipratropium [place] (Atrovent 0.02% 0.5MG/2.5ML Neb) 0.5 mg Q2H PRN INH 09/07/16 03:15 10/07/16 03:14 Levalbuterol (Xopenex 1.25MG/ 0.5ML Neb) 1.25 mg Q2H PRN INH 09/07/16 03:15 10/07/16 03:14 Piperacillin Sod/ Tazobactam Sod 1 ea 1 ea UD PRN N/A 09/07/16 03:15 10/07/16 03:14 Piperacillin Sod/ Tazobactam Sod 3.375 gm/Dextrose 115 ml @ 28.75 mls/ hr Q8H IV 09/07/16 08:00 09/14/16 07:59 09/09/16 08:18 28.75 MLS/HR Famotidine 20 mg/ Dextrose 102 ml @ 204 mls/hr Q12H IV 09/07/16 04:30 10/07/16 04:29 09/09/16 04:48 204 MLS/HR Sodium Chloride/ Sterile Water (Sodium Chloride 14.6%/Sterile Water 1000 ml) 1,000 ml @ 60 mls/hr [id number] IV 09/09/16 08:30 10/09/16 08:29 UNV Aspirin (Aspirin Supp) 300 mg DAILY NC 09/10/16 09:00 10/10/16 08:59 Impression This is a 86-year-old female with an acute left MCA territory ischemic stroke. Residual neurological deficits include right hemiplegia, global aphasia, dysphasia, and likely right visual field defects. Known stroke risk factors include hypertension, dyslipidemia, diabetes, and untreated obstructive sleep apnea. Patient has some minor facial trauma/bruising secondary to fall that does not preclude her from antiplatelets. Fall likely secondary to stroke. Known history of dementia symptoms on Aricept. Plan It is my understanding that speech has recommended a swallow evaluation. Continue to follow up speech recommendations. Depending on swallow evaluation patient needs may need a temporary NG tube for medications and nutrition. Recommend PT/OT evaluation and treatment in addition to speech therapy. I have started rectal aspirin for secondary stroke prevention since patient is currently nothing by mouth. When able to do so, I would recommend switching to Plavix for secondary stroke prevention in the setting of stroke while on aspirin and left ICA stenosis. I have ordered a HgA1c and fasting lipid profile for further evaluation of modifiable stroke risk factors. Recommend restarting home statin when able to do so Patient is diabetic. Glucose monitoring and treatment per hospitalist. Follow-up PT/OT and speech therapies for discharge planning. Blood pressure recommendations while in hospital 175/95-150/80 Avoid hypotension and dehydration as this could extend or worsen stroke. Stroke risk factor modifications and recommendations: Blood pressure recommendations for the first month post hospital discharge 150/ 90-130/80, and after that blood pressure recommendations 130/80-110/70 Total cholesterol goal 100- 200 and LDL goal less than 70 Hemoglobin A1c goal less than 7 Encourage cardiovascular exercise at least 3 times a week for 30 minutes. Follow-up in neurology clinic in 1 month for post stroke hospital follow-up. If there is any questions or concerns, feel free to call/page me.
[2016-09-09] MEDS ORDERED: LORAZEPAM 2 MG/ML 1 ML VIAL IV PRN (14:00)
[2016-09-09] MEDS ORDERED: LORAZEPAM 1 MG TAB PO PRN (14:00)
[2016-09-09] MEDS ORDERED: MoRPHine SULFATE 4 MG/ML 1 ML CARP\\VIAL ONE (14:03)
[2016-09-09] MEDS: SODIUM CHLORIDE 0.45% 1000ML 1,000 ML IV SCH (14:06)
[2016-09-09] MEDS ORDERED: MoRPHine SULFATE 2 MG/ML CARP IV PRN (14:15)
[2016-09-09] MEDS ORDERED: NURSING VERBAL MED ORDER ONE (15:30)
[2016-09-09] MEDS ORDERED: SCOPOLAMINE 1.5 MG TDSY TD SCH (16:00)
--- NOTE | 2016-09-09 16:04 | Palliative Care Consultation ---
Consultation Date of Consultation: Sep 09, 2016. Requesting Physician: Dr. Owusu Attending Physician: Dr. Lloyd Reason for Consultation: Goals of care, symptom management History of Present Illness This 86 year old female patient presented to the ED two days ago after a fall in the bathroom at [facility] [facility] in which she hit her head. Per her daughter, the patient was also having right arm weakness and was found on the bathroom floor staring and nonverbal. Patient does significant dementia at baseline, but she is still normally able to walk and talk. The initial CT scan showed nothing acute. Neuro was consulted who ordered an MRI which showed a left MCA infarct. Carotid ultrasound showed 50-69% stenosis of the left internal carotid, echo showed EF 50-55%, inferolateral wall hypokinesis, mild concentric LVH, and mild mitral regurg. The patient has not restored her ability to speak, right side is still very weak. She is unable to swallow at this point and has a very poor overall prognosis. Palliative care consulted to assist with establishing goals of care. The patient is in bed and not able to speak. She did look at me and make eye contact, but did not purposefully follow my commands. She does have purposeful movements, however, as she was trying to reposition herself in bed. She could not communicate any needs or discomfort to me. I spoke with the patient's daughter/POA, Elise, on the phone who already had a long conversation with Dr. Lloyd and decided to make her mother comfort measures only. She does not want her mom to have a feeding tube, CPR, intubation or any other heroic measures. Elise and I are going to talk tomorrow about options for possible discharge based on the patient's clinical course. Past Medical/Surgical History Medical History: Hypertension Dementia Dyslipidemia CVA Obstructive sleep apnea Carotid stenosis CHF Surgical History: Cataract surgery Tonsillectomy Dental procedures Social History Smoking Status: Former Smoker History of Alcohol Use: No Drug Use: none Marital Status: single Housing Status: fpc Occupation Status: retired Review of Systems unable to obtain Allergies Coded Allergies: No Known Allergies (Unverified , 09/06/16) Medications Current Inpatient Medications Medications (Trade) Dose Ordered Sig/Zach Route Start Time Stop Time Status Last Admin Dose Admin Methylprednisolone Sodium Succinate/ Syringe (Solu-Medrol IV/ Syringe) 0.64 ml @ 1.5 mls/min Q8H IV 09/07/16 08:00 10/07/16 07:59 09/09/16 08:18 1.5 MLS/MIN Ondansetron HCl (Zofran Inj) 4 mg Q6H PRN IV 09/07/16 02:15 10/07/16 02:14 Diphenhydramine HCl 25 mg 25 mg Q4H PRN IV 09/07/16 02:15 10/07/16 02:14 Promethazine HCl/ Sodium Chloride (Phenergan Inj/ Nss 50ml) 50.5 ml @ 202 mls/hr Q4H PRN IV 09/07/16 02:15 10/07/16 02:14 Piperacillin Sod/ Tazobactam Sod 1 ea 1 ea UD PRN N/A 09/07/16 03:15 10/07/16 03:14 Piperacillin Sod/ Tazobactam Sod 3.375 gm/Dextrose 115 ml @ 28.75 mls/ hr Q8H IV 09/07/16 08:00 09/14/16 07:59 09/09/16 08:18 28.75 MLS/HR Famotidine 20 mg/ Dextrose 102 ml @ 204 mls/hr Q12H IV 09/07/16 04:30 10/07/16 04:29 09/09/16 04:48 204 MLS/HR Sodium Chloride (1/2 Nss 1000ml) 1,000 ml @ 60 mls/hr [id number] IV 09/09/16 14:00 10/09/16 13:59 09/09/16 14:06 60 MLS/HR Aspirin (Aspirin Supp) 300 mg DAILY [place] 09/10/16 09:00 10/10/16 08:59 Lorazepam (Ativan Inj) 0.5 mg Q2HWA PRN IV 09/09/16 14:00 10/09/16 13:59 Morphine Sulfate (MoRPHine SULFATE INJ) 4 mg Q2H PRN IV 09/09/16 14:15 09/23/16 14:14 Morphine Sulfate (MoRPHine SULFATE INJ) 2 mg Q2H PRN IV 09/09/16 14:15 09/23/16 14:14 Lorazepam (Ativan Tab) 1 mg Q4 PRN PO 09/09/16 14:00 10/09/16 13:59 Physical Exam Date Time Temp Pulse Resp B/P Pulse Ox O2 Delivery O2 Flow Rate FiO2 09/09/16 14:15 36.6 83 22 92 4.0 09/09/16 12:00 92 Nasal Cannula 4.0 09/09/16 11:30 36.6 83 22 174/84 92 4.0 09/09/16 08:00 Nasal Cannula 3.0 09/09/16 07:20 36.4 74 20 165/82 96 4.0 09/09/16 06:17 86 20 94 Nasal Cannula 4.0 09/09/16 04:02 36.5 74 28 167/82 94 Nasal Cannula 09/09/16 04:00 Nasal Cannula 3.0 09/09/16 00:08 36.5 63 28 163/69 98 Nasal Cannula 09/08/16 23:59 Nasal Cannula 3.0 09/08/16 20:00 Nasal Cannula 3.0 09/08/16 19:05 79 16 97 Nasal Cannula 3.5 09/08/16 16:00 96 Nasal Cannula 3.0 09/08/16 15:34 36.6 65 16 127/54 94 Nasal Cannula 3.0 Humidified Oxygen General Appearance: + obese, + pertinent finding (restless in bed, appears uncomfortable) Eyes: + pertinent finding (right orbital ecchymosis) Neck: no JVD, trachea midline Respiratory: no accessory muscle use, + rhonchi (coarse in upper, anterior lobes), + pertinent finding (respirations slightly labored, secretions audible) Cardiovascular: regular rate, rhythm, + pertinent finding (bilateral lower extremity edema) Abdomen: normal bowel sounds, soft Musculoskeletal: poor tone (right arm flaccid) Neurologic/Psychiatric: alert, + pertinent finding (nonverbal) Skin: + pallor Laboratory Results Last 24 Hours Test 09/08/16 18:26 09/09/16 05:03 Sodium Level 145 mmol/L 148 mmol/L Potassium Level 4.1 mmol/L 4.3 mmol/L Chloride Level 112 mmol/L 111 mmol/L Carbon Dioxide Level 24 mmol/L 28 mmol/L Anion Gap 9.0 mmol/L 9.0 mmol/L Blood Urea Nitrogen 29 mg/dl 27 mg/dl Creatinine 1.10 mg/dl 1.00 mg/dl Est Creatinine Clear Calc Drug Dose 38.1 ml/min 41.9 ml/min Estimated GFR () 52.6 59.1 Estimated GFR (Non- 45.4 51.0 BUN/Creatinine Ratio 26.3 26.7 Random Glucose 160 mg/dl 135 mg/dl Calcium Level 7.9 mg/dl 8.2 mg/dl Magnesium Level 2.0 mg/dl 2.1 mg/dl White Blood Count 22.94 K/uL Red Blood Count 4.58 M/uL Hemoglobin 14.0 g/dL Hematocrit 42.4 % Mean Corpuscular Volume 92.6 fL Mean Corpuscular Hemoglobin 30.6 pg Mean Corpuscular Hemoglobin Concent 33.0 g/dl Platelet Count 193 K/uL Mean Platelet Volume 11.7 fL Neutrophils (%) (Auto) 95.1 % Lymphocytes (%) (Auto) 2.1 % Monocytes (%) (Auto) 2.5 % Eosinophils (%) (Auto) 0.0 % Basophils (%) (Auto) 0.0 % Neutrophils # (Auto) 21.80 K/uL Lymphocytes # (Auto) 0.48 K/uL Monocytes # (Auto) 0.57 K/uL Eosinophils # (Auto) 0.00 K/uL Basophils # (Auto) 0.01 K/uL RDW Standard Deviation 47.1 fL RDW Coefficient of Variation 14.3 % Immature Granulocyte % (Auto) 0.3 % Immature Granulocyte # (Auto) 0.08 K/uL Estimated Average Glucose 146 mg/dl Hemoglobin A1c 6.7 % Assessment & Plan Palliative Performance Scale: 20 % Problem list: Weakness Nonverbal/aphasic Dysphagia, NPO Left MCA CVA CHF, EF 50-55% Goals of care (Z51.5) Palliative care plan: Discussed with Elise (Daughter/POA) and Dr. Lloyd. Patient was already made comfort measures only. She does still have IVF infusing. Patient is fully awake , but unable to communicate needs and not able to take PO. There will be no feeding tube or escalation of care, she remains a DNR/DNI. I suspect that the patient will be stable to transfer back to [facility] tomorrow for comfort care. Will reevaluate tomorrow. Scopolamine patch ordered for secretions. Has morphine 2-4mg IV Q2h PRN ordered if needed but she has not received any yet, I' d keep this on board for any pain, agitation, SOB or labored respirations. Transition to oral Roxanol if going to be discharged. Thank you kindly for this consult and allowing me to care for this patient.
[2016-09-09] MEDS: CHECK SCOPOLAMINE PATCH PLACEMENT SCH (21:04)
[2016-09-09] MEDS: MoRPHine SULFATE 2 MG/ML CARP IV PRN (21:32)
[2016-09-10] MEDS: METHYLPREDNISOLONE IV 40 MG in SYRINGE 0 ML IV SCH (01:36)
[2016-09-10] MEDS: PIPERACILL/TAZOBAC IV 3.375 GM in DEXTROSE 5% 100ML IV SCH ×2 (04:01→08:00)
[2016-09-10] MEDS: FAMOTIDINE IV INJ 20 MG in DEXTROSE 5% 100ML 100 ML IV SCH (04:42)
[2016-09-10] MEDS: SODIUM CHLORIDE 0.45% 1000ML 1,000 ML IV SCH (06:44)
[2016-09-10] MEDS: CHECK SCOPOLAMINE PATCH PLACEMENT SCH ×2 (07:54→17:40)
[2016-09-10] MEDS: MoRPHine SULFATE 2 MG/ML CARP IV PRN ×4 (07:55→20:49)
[2016-09-10] MEDS ORDERED: ASPIRIN 300 MG SUPP PR SCH (08:00)
--- NOTE | 2016-09-10 09:33 | Hospitalist Progress Note ---
Hospitalist Progress Note Date of Service Sep 10, 2016. Subjective Pt evaluation today including: physical exam, chart review, lab review, review of inpatient medication list Voiding: juarez catheter in place Patient is resting in bed peacefully. No apparent distress. Nonverbal. Opens eyes in response to name. Moans spontaneously. ROS could not be obtained due to patient's status. Medications Current Inpatient Medications Medications (Trade) Dose Ordered Sig/Zach Route Start Time Stop Time Status Last Admin Dose Admin Ondansetron HCl (Zofran Inj) 4 mg Q6H PRN IV 09/07/16 02:15 10/07/16 02:14 Lorazepam (Ativan Inj) 0.5 mg Q2HWA PRN IV 09/09/16 14:00 10/09/16 13:59 Morphine Sulfate (MoRPHine SULFATE INJ) 4 mg Q2H PRN IV 09/09/16 14:15 09/23/16 14:14 09/10/16 07:55 4 MG Morphine Sulfate (MoRPHine SULFATE INJ) 2 mg Q2H PRN IV 09/09/16 14:15 09/23/16 14:14 Lorazepam (Ativan Tab) 1 mg Q4 PRN PO 09/09/16 14:00 10/09/16 13:59 Scopolamine (Transderm-Scop Patch) 1.5 mg Q72H TD 09/09/16 16:00 10/09/16 15:59 09/09/16 16:51 1.5 MG Miscellaneous (Remove Transderm-Scop Patch) 1 ea Q72H N/A 09/12/16 16:00 10/12/16 15:59 Miscellaneous Information (Check Scopolamine Patch Placement) 1 ea Q12H N/A 09/09/16 21:00 10/09/16 20:59 09/10/16 07:54 1 EA Objective Vital Signs Date Time Temp Pulse Resp B/P Pulse Ox O2 Delivery O2 Flow Rate FiO2 09/10/16 00:00 Nasal Cannula 4.0 09/09/16 16:00 Nasal Cannula 2.0 09/09/16 16:00 36.6 114 20 166/85 90 Nasal Cannula 4.0 09/09/16 14:15 36.6 83 22 92 4.0 09/09/16 12:00 92 Nasal Cannula 4.0 09/09/16 11:30 36.6 83 22 174/84 92 4.0 Physical Exam General Appearance: no apparent distress Neck: supple Respiratory/Chest: no respiratory distress, no accessory muscle use Cardiovascular: regular rate, rhythm Abdomen: non tender, soft Extremities: no pedal edema, no calf tenderness Neurologic/Psychiatric: + disoriented, + pertinent finding (will open eyes in reponse to name, nonverbal, moans spontaneously ) Skin: normal color, warm/dry, no rash Assessment and Plan Altered mental status, with baseline significant dementia, status post fall with head trauma and large left sided stroke MCA : - Admit to the telemetry unit for cardiac rhythm monitoring -- Transferred to med/surg on 09/09 due to POA decision on comfort measures - Hydrate with IV NSS -- 08/14 NSS @ 60 ml/hr due to hypernatremia of 148. Continue to follow PRP. () - Influenza negative - U/A negative - CT of the head does not show any acute issue. MRI confirmed left MCA stroke - Carotid U/S stenosis left internal carotid artery but unchanged form previous study - ECHO- Normal left ventricular size with low normal systolic function. EF 50-55 %. Inferolateral wall appears hypokinetic. Mild concentric left ventricular hypertrophy. There is mild mitral regurgitation. No visualized right to left interatrial shunt via color Doppler or following injection of agitated saline. Normal estimated right ventricular systolic pressure; RVSP 31 mmHg. - Appreciate neurology recommendations -- Cont ASA rectally but may switch to Plavix when tolerating oral intake -- Check ha1c and lipid panel - Speech therapy following- NPO since 09/07. Likely will need video swallowing prior to starting diet - Follow CBC -- Leukocytosis, likely secondary to IV Solu Medrol. (09/09) Pulmonary--possible aspiration pneumonia after fall versus pneumonia precipitating fall: - Solu-Medrol 40 mg IV every 8 hours, Vancomycin IV per renal dosing, Zosyn 3.375 mg IV every 8 hours (started 09/07) -- MRSA swab negative, d/c'd IV Vancomycin - Xopenex with Atrovent nebulizers every 6 hours while awake and every 2 hours when necessary. Hypercholesterolemia: - Hold Atorvastatin 20 mg by mouth daily while nothing by mouth Dementia: - Hold Donepezil 5 mg by mouth daily while NPO Hypertension/hypokalemia: - Hold chewable aspirin 81 mg by mouth daily, Irbesartan 150 mg by mouth daily, Nifedipine extended release 30 mg by mouth daily while NPO - Hydralazine 10 mg IV every 6 hours when necessary systolic blood pressure greater than 150 Diabetes mellitus: - Hold standard Humalog dosing - BSG ACHS with NovoLog coverage GERD: - Hold Ranitidine 150 mg by mouth daily and place on Famotidine 20 mg IV twice a day. Depression: - Hold Sertraline 25 mg by mouth daily while NPO Code Status: - LEVEL V, DNR/DNI Dispo: - Resident of [facility]. - Poor prognosis. Consult palliative care Elise, patient's daughter/POA, decided on comfort measures only on 09/09. Dr. Lloyd spoke with daughter again on 09/10 and daughter has decided on strict comfort measures only and to discontinue medications/IVF. No aggressive interventions/evaluations/treatments. Palliative care is also following case and has been in contact with Elise. For comfort measures, IV Ativan PRN, IV Morphine PRN, scopolamine patch, and IV Zofran PRN.
[2016-09-10] MEDS ORDERED: METHYLPREDNISOLONE IV 40 MG in SYRINGE 0 ML IV SCH (13:00)
--- NOTE | 2016-09-10 14:55 | Palliative Care Progress Note ---
Palliative Care Progress Note Date of Service Sep 10, 2016. Subjective Pt evaluation today including: conversation w/ family, conversation w/ residential property consultant No physical assessment done per patient's family's request. Review of Systems unable to obtain Assessment and Plan Problem list: Weakness Nonverbal/aphasic Dysphagia, NPO Left MCA CVA CHF, EF 50-55% Goals of care (Z51.5) Palliative care plan: Discussed with patient's daughter, Elise, and Dr. Lloyd. Patient is comfort measures only. All other medications have been discontinued. Patient has declined over night and did not wake up while I was in the room. I discussed options with Elise and with Lauren, case management student, in the room. Elise would like to pursue [facility] hospice with [facility]. Referral will be made. For now, continue scop patch and PRN morphine 2-4mg IV Q2h PRN pain or SOB. Respirations much less labored today, patient appears comfortable on IV morphine. I will follow on an as needed basis. Palliative Performance Scale: 10 % Continued [facility] stay due to: multiple IV medications needed, home environment unsafe for pt Discharge planning: other ([facility] hospice)
[2016-09-10 16:10] VITALS: O2SAT 92
[2016-09-11] MEDS: MoRPHine SULFATE 2 MG/ML CARP IV PRN ×2 (07:45→10:32)
[2016-09-11] MEDS: CHECK SCOPOLAMINE PATCH PLACEMENT SCH (07:47)
--- NOTE | 2016-09-11 08:51 | Hospitalist Progress Note ---
Hospitalist Progress Note Date of Service Sep 11, 2016. Subjective Pt evaluation today including: physical exam, review of inpatient medication list Voiding: juarez catheter in place Patient is resting peacefully. No signs of distress. Does not respond to calling name/stimuli. ROS not obtained due to patient's status. Medications Current Inpatient Medications Medications (Trade) Dose Ordered Sig/Zach Route Start Time Stop Time Status Last Admin Dose Admin Ondansetron HCl (Zofran Inj) 4 mg Q6H PRN IV 09/07/16 02:15 10/07/16 02:14 Lorazepam (Ativan Inj) 0.5 mg Q2HWA PRN IV 09/09/16 14:00 10/09/16 13:59 Morphine Sulfate (MoRPHine SULFATE INJ) 4 mg Q2H PRN IV 09/09/16 14:15 09/23/16 14:14 09/11/16 07:45 4 MG Morphine Sulfate (MoRPHine SULFATE INJ) 2 mg Q2H PRN IV 09/09/16 14:15 09/23/16 14:14 09/11/16 03:22 2 MG Lorazepam (Ativan Tab) 1 mg Q4 PRN PO 09/09/16 14:00 10/09/16 13:59 Scopolamine (Transderm-Scop Patch) 1.5 mg Q72H TD 09/09/16 16:00 10/09/16 15:59 09/09/16 16:51 1.5 MG Miscellaneous (Remove Transderm-Scop Patch) 1 ea Q72H N/A 09/12/16 16:00 10/12/16 15:59 Miscellaneous Information (Check Scopolamine Patch Placement) 1 ea Q12H N/A 09/09/16 21:00 10/09/16 20:59 09/11/16 07:47 1 EA Objective Vital Signs Date Time Temp Pulse Resp B/P Pulse Ox O2 Delivery O2 Flow Rate FiO2 09/11/16 00:00 Nasal Cannula 4.0 09/10/16 16:10 92 Nasal Cannula 4.0 09/10/16 10:29 Nasal Cannula 4.0 Physical Exam General Appearance: no apparent distress Eyes: + pertinent finding (bruising around right orbit ) Respiratory/Chest: no respiratory distress, no accessory muscle use Cardiovascular: + pertinent finding (distant heart sounds secondary to coarse BS ) Abdomen: soft Extremities: no pedal edema Neurologic/Psychiatric: + pertinent finding (sleeping peacefully- does not respond to stimuli/name) Skin: normal color, warm/dry, no rash Notes: Limited exam due to patient's status. Assessment and Plan Altered mental status, with baseline significant dementia, status post fall with head trauma and large left sided stroke MCA : - Admit to the telemetry unit for cardiac rhythm monitoring -- Transferred to med/surg on 09/09 due to POA decision on comfort measures - Hydrate with IV NSS -- 08/14 NSS @ 60 ml/hr due to hypernatremia of 148. Continue to follow PRP. () - Influenza negative - U/A negative - CT of the head does not show any acute issue. MRI confirmed left MCA stroke - Carotid U/S stenosis left internal carotid artery but unchanged form previous study - ECHO- Normal left ventricular size with low normal systolic function. EF 50-55 %. Inferolateral wall appears hypokinetic. Mild concentric left ventricular hypertrophy. There is mild mitral regurgitation. No visualized right to left interatrial shunt via color Doppler or following injection of agitated saline. Normal estimated right ventricular systolic pressure; RVSP 31 mmHg. - Appreciate neurology recommendations -- Cont ASA rectally but may switch to Plavix when tolerating oral intake -- Check ha1c and lipid panel - Speech therapy following- NPO since 09/07. Likely will need video swallowing prior to starting diet - Follow CBC -- Leukocytosis, likely secondary to IV Solu Medrol. (09/09) Pulmonary--possible aspiration pneumonia after fall versus pneumonia precipitating fall: - Solu-Medrol 40 mg IV every 8 hours, Vancomycin IV per renal dosing, Zosyn 3.375 mg IV every 8 hours (started 09/07) -- MRSA swab negative, d/c'd IV Vancomycin - Xopenex with Atrovent nebulizers every 6 hours while awake and every 2 hours when necessary. Hypercholesterolemia: - Hold Atorvastatin 20 mg by mouth daily while nothing by mouth Dementia: - Hold Donepezil 5 mg by mouth daily while NPO Hypertension/hypokalemia: - Hold chewable aspirin 81 mg by mouth daily, Irbesartan 150 mg by mouth daily, Nifedipine extended release 30 mg by mouth daily while NPO - Hydralazine 10 mg IV every 6 hours when necessary systolic blood pressure greater than 150 Diabetes mellitus: - Hold standard Humalog dosing - BSG ACHS with NovoLog coverage GERD: - Hold Ranitidine 150 mg by mouth daily and place on Famotidine 20 mg IV twice a day. Depression: - Hold Sertraline 25 mg by mouth daily while NPO Code Status: - LEVEL V, DNR/DNI Dispo: - Resident of [facility]. - Poor prognosis. Consult palliative care Elise, patient's daughter/POA, decided on comfort measures only on 09/09. Dr. Lloyd spoke with daughter again on 09/10 and daughter has decided on strict comfort measures only and to discontinue medications/IVF. No aggressive interventions/evaluations/treatments. Palliative care is also following case and has been in contact with Elise. For comfort measures, IV Ativan PRN, IV Morphine PRN, scopolamine patch, and IV Zofran PRN. On 09/11: continue with comfort measures. Patient does not appear to be in any distress. Resting peacefully- appears comfortable. Palliative care spoke with Elise, decided on [facility] Hospice.
[2016-09-11] MEDS ORDERED: NURSING VERBAL MED ORDER ONE (11:45)
[2016-09-11] MEDS ORDERED: ATROPINE SULFATE 1% OP SOLN 2 ML BTL SL PRN (11:45)
--- NOTE | 2016-09-11 11:45 | Palliative Care Progress Note ---
Palliative Care Progress Note Date of Service Sep 11, 2016. Subjective Pt evaluation today including: conversation w/ family, chart review, conversation w/ remediation bioanalytics consultant, review of inpatient medication list Pain: obtunded, requiring IV morphine for symptom control PO Intake: none Voiding: juarez catheter in place (decreased urine output, urine is dark today) Patient obtunded at this time, more comfortable with IV morphine. Respirations are still somewhat labored, secretions are audible in throat. Spoke with the daughter, Elise Oseguera, and son-in-law, Sedrick Oseguera about patient status. Still awaiting Home Nursing Agency to evaluate for [facility]. Family is aware that the patient likely only has hours to days left. Medications unable to obtain Objective Vital Signs Date Time Temp Pulse Resp B/P Pulse Ox O2 Delivery O2 Flow Rate FiO2 09/11/16 00:00 Nasal Cannula 4.0 09/10/16 16:10 92 Nasal Cannula 4.0 Physical Exam General Appearance: + obese, + pertinent finding (chronically ill appearing) Eyes: + pertinent finding (right orbital ecchymosis) Neck: no JVD Respiratory/Chest: + decreased breath sounds, + accessory muscle use, + pertinent finding (coarse upper airways, secretions are audible. respirations somewhat labored) Cardiovascular: + tachycardia, + irregularly irregular, + pertinent finding ( bilateral lower extremity edema) Abdomen: normal bowel sounds, soft Neurologic/Psychiatric: + pertinent finding (obtunded, not responding) Skin: + pallor, + pertinent finding (plantar side of feet are mottled) Assessment and Plan Problem list: Weakness Nonverbal/aphasic Dysphagia, NPO Left MCA CVA CHF, EF 50-55% Goals of care (Z51.5) Palliative care plan: Discussed with patient's daughter, Elise, and Dr. Lloyd. Patient is comfort measures only. All other medications have been discontinued. Awaiting [facility] referral by [facility]. Encouraged nursing to treat labored respirations as needed and as requested by the family. Ordered atropine 1% oph solution 4 drops PO Q4h PRN secretions in addition to the scopolamine patch. Continue with morphine 2- 4mg IV Q2h PRN as well. I will follow on an as needed basis. Thank you. Palliative Performance Scale: 10 % Continued [facility] stay due to: multiple IV medications needed, home environment unsafe for pt Discharge planning: other ([facility] hospice)
--- NOTE | 2016-09-11 12:35 | Death Summary ---
Summary of Admission Date Sep 07, 2016 at 01:56 Date & Time of Sep 11, 2016. 1210 Cause of acute stroke Secondary Diagnoses pneumonia Hospital Course 86 yo WF admitted with Altered mental status, with baseline significant dementia , status post fall with head trauma and large left sided stroke MCA on 09/09 pt was unresponsive, not able to eating drink, with right arm weakness, Poor prognosis. pt was change to [facility] after detail discussing with POA daughter Elise, Consult palliative care Elise, patient's daughter/POA, decided on comfort measures only on 09/09. Dr. Lloyd spoke with daughter again on 09/10 and daughter has decided on strict comfort measures only and to discontinue medications/IVF. No aggressive interventions/evaluations/treatments. Palliative care is also following case and has been in contact with Elise. For comfort measures, IV Ativan PRN, IV Morphine PRN, scopolamine patch, and IV Zofran PRN. On 09/11: continue with comfort measures. Patient does not appear to be in any distress. Resting peacefully- appears comfortable. Palliative care spoke with Elise, decided on [facility] Hospice. on 1209, I pronounced patient , I called to POA , no autopsy, answered all questions
== END 2016-09-11 18:35 | disposition expired | DRG 64 ==
LOC: ENRESERVTM → ENRESERVDT → EDBD 22:16 → C.ED 22:17 → EEVIPCON 09-07 01:56 → C.2T 09-07 01:56 → C.4E 09-09 15:54
PROVIDERS: ADMIT Hospitalist; ATTEND Hospitalist
DX: I63.9 Cerebral infarction, unspecified (principal); J18.9 Pneumonia, unspecified organism; G81.91 Hemiplegia, unspecified affecting right dominant side; Z51.5 Encounter for palliative care; I10 Essential (primary) hypertension; E11.9 Type 2 diabetes mellitus without complications; E78.5 Hyperlipidemia, unspecified; F02.80 Dementia in other diseases classified elsewhere, unspecified severity, without behavioral disturbance, psychotic disturbance, mood disturbance, and anxiety; G30.9 Alzheimer's disease, unspecified; S00.83XA Contusion of other part of head, initial encounter; R47.01 Aphasia; G47.33 Obstructive sleep apnea (adult) (pediatric); F32.9 Major depressive disorder, single episode, unspecified; H53.47 Heteronymous bilateral field defects; I65.22 Occlusion and stenosis of left carotid artery; E87.6 Hypokalemia; K21.9 Gastro-esophageal reflux disease without esophagitis; Z66 Do not resuscitate; R13.10 Dysphagia, unspecified; Z79.82 Long term (current) use of aspirin; Z87.891 Personal history of nicotine dependence; W19.XXXA Unspecified fall, initial encounter; Y92.002 Bathroom of unspecified non-institutional (private) residence as the place of occurrence of the external cause